=== PATIENT | male | born 1950 | race Asian ===

== ENCOUNTER → 2019-03-16 11:30 | Inpatient (IN) | payer MEDICARE ==
--- NOTE | 2019-03-01 13:48 | HP ---
HISTORY AND PHYSICAL: DATE OF ADMISSION/SURGERY: 03/14/19 DATE OF OFFICE VISIT: 03/01/19 SURGEON: Roxana Go MD* (dictated by GILDARDO Mary). PROCEDURE: Right total knee arthroplasty. CHIEF COMPLAINT: Right knee pain. HISTORY OF PRESENT ILLNESS: Mr. Bhatia is a 68-year-old gentleman with severe end- stage osteoarthritis of the right knee. He has failed conservative treatment and elected to proceed with a right total knee arthroplasty. PAST MEDICAL HISTORY: Prostate cancer, high cholesterol, and hypertension. PAST SURGICAL HISTORY: Denies. CURRENT MEDICATIONS: 1. Losartan potassium 100 mg daily. 2. Fish oil 1000 mg a day. 3. Pravastatin sodium 40 mg a day. 4. Citracal and vitamin D. 5. Alfuzosin 10 mg a day. 6. Amlodipine 5 mg a day. 7. Erythromycin 5 mg/g apply twice a day to his eyes. 8. Osteo Bi-Flex. ALLERGIES: No known drug allergies. FAMILY HISTORY: Coronary artery disease and cancer. SOCIAL HISTORY: He is a 68-year-old gentleman who lives with his . He does not smoke or use drugs. REVIEW OF SYSTEMS: A complete 14-point review of systems was reviewed with the patient. It is all negative or noncontributory. He denies history of DVT, PE, hepatitis, HIV or anesthesia problems. PHYSICAL EXAMINATION GENERAL: He is well developed, well nourished, in no acute distress. VITAL SIGNS: He stands 5 feet 7 inches tall, weighs 159 pounds. His blood pressure is 140/74, his heart rate is 76. HEENT: Normocephalic, atraumatic. NECK: Supple. No palpable lymph nodes. PULMONARY: The lungs are clear to auscultation bilaterally. CARDIO: Regular rate and rhythm. Strong S1 and S2. ABDOMEN: Soft, nontender, nondistended. NEUROLOGICAL: He is alert and oriented x3. MUSCULOSKELETAL: Right lower extremity: The skin is intact. There are no open wounds or abrasions. There is a significant varus deformity of the right knee and moderate effusion of the right knee. Range of motion is 15 to 90 degrees of flexion. He is able to dorsiflex and plantarflex. He has a 2+ dorsalis pedis pulse. ASSESSMENT AND PLAN: Mr. Bhatia is a 68-year-old gentleman with severe end- stage osteoarthritis of the right knee. He has failed conservative treatment and elected to proceed with a right total knee arthroplasty. The surgery is scheduled for 03/14/[address] Go discussed the risks and benefits of the surgery at today's visit and all of his questions were answered. He will follow up with Dr. Go 2 weeks after the surgery. GILDARDO MARY [id number]/[facility] #: [id number] MTDD
--- OUTSIDE RECORDS SUMMARY | 2019-03-14 09:51 | XMS REPORT | Continuity of Care Document ---
:1950 External Reference #:[id number] Author Name Radha Ocasio Care Team Providers Name Role Phone Ken Arenas MD Primary Care Physician Unavailable Payers Date Identification Numbers Payment Provider Subscriber Policy Number: [id number] Medicare Blue Ppo Moustapha Rossi [employer] Number: [id number] [address] [address] PayID: [id number] [place] [address] Expires: 2014 Policy Number: [id number] [facility] [employer]oust[employer]ha [employer] Number: [id number] [address] [place] [address] Expires: 2014 Medicare D - Drug Plan Moustapha Enid Emmett Problems Active Problems Provider Date Essential hypertension Guicho Figueredo M.D. Onset: 08/12/2015 Pure hypercholesterolemia Guicho Figueredo M.D. Onset: 03/28/2012 Benign localized hyperplasia of prostate Guicho Figueredo M.D. Onset: 2011 Localized, primary osteoarthritis Roxana Go M.D. Onset: 04/05/2017 Acquired genu varum Roxana Go M.D. Onset: 05/13/2018 Family History Date Family Member(s) Observation Comments General Heart Disease General Hypertension Social History Type Date Description Comments Sex Unknown Marital Status Lives With Spouse Occupation Assembler [employer] ETOH Use Occasionally consumes alcohol Tobacco Use Start: Unknown Patient has never smoked Recreational Drug Use Denies Drug Use Smoking Status Reviewed: 03/01/19 Patient has never smoked Exercise Type/Frequency Exercises regularly Allergies, Adverse Reactions, Alerts Description No Known Drug Allergies Medications Active Medications SIG Qnty Indications Ordering Provider Date Losartan Potassium Take One Tablet 90tabs I10 Guicho Figueredo, 08/31/2011 By Mouth Once M.D. 100mg Tablets Daily Fish Oil 1 po qd Guicho Figueredo, 01/21/2009 1000mg M.D. Capsules Pravastatin Sodium take one tablet 90tabs Guicho Figueredo, 01/21/2009 40mg by mouth every M.D. Tablets day Citracal +D3 Unknown [phone]-mg-Unit Chewtabs Alfuzosin HCL ER 1 by mouth every Unknown 10mg day Tablets ER 24HR Amlodipine Besylate 1 by mouth every Unknown 5mg day Tablets Erythromycin apply one half Unknown 5mg/GM inch ribbon into Ointment affected eye two times a day for 5 days Osteo Bi-Flex Regular 2 by mouth every Unknown Strength day 250-200mg Tablets History Medications Suprep Bowel Prep Kit take according to 354ml Natali Mccallum, 12/12/2018 - the instructions DIRECTOR OPERATING ROOM 01/31/2019 17.5-3.13-1.6GM/177ML you received the Solution afternoon before and morning of your procedure Oxycodone-Acetaminophen 1-2 tabs by mouth 60tabs M25.5 Roxana Go, 03/23 - 5-325mg every 12 hours as 61 M.D. 05/12/2018 Tablets needed for pain Cephalexin 1 by mouth four 20tabs M25.4 Roxana Go, 03/23/2018 - 500mg Tablets times a day 61 M.D. 05/12/2018 Meloxicam take one tablet 30tabs M25.5 Guicho Llanos 03/31/2017 - 7.5mg Tablets by mouth once 61 Khushboo Figueredo Unknown daily Amlodipine Besylate Take One Tablet 90tabs Eliza 11/05/2011 - 10mg Tablets By Mouth Once Khushboo Heaton Unknown Daily In The Evening Lisinopril 1 po qd 90tabs 401.1 Guicho Llanos 07/17/2011 - 20mg Tablets Khushboo Figueredo 08/31/2011 Medrol medrol dosepack 21tabs Guicho Llanos 09/10/2010 - 4mg Tablets as directed Khushboo Figueredo 07/17/2011 Uroxatral qd Guicho Llanos 08/29/2010 - 10mg Tablets ER 24HR Khushboo Figueredo 07/17/2011 Prednisone (Marcelo) take as directed Other 11/13/2009 - 10mg Tablets Physician 01/01/2010 Practices Protonix 1 po qd 60tabs Other 11/13/2009 - 40mg Tablets DR Cohn 07/14/2010 Practices Allopurinol 1 po qd 90tabs Guicho Llanos 11/13/2009 - 100mg Tablets Khushboo Figueredo 07/17/2011 Aspir-81 1 po qd 30tabs Guicho Llanos 01/21/2009 - 81mg Tablets DR Bea M.D. 03/28/2012 None Guicho Llanos 07/11/2007 - Khushboo Figueredo 01/01/2010 Indomethacin 1 po tid prn gout 60caps Guicho Llanos - 50mg Capsules Khushboo Figueredo 07/17/2011 Calcium 1 po qd Unknown - 1000mg Tablets 03/31/2017 Cold & Flu Intense Strength 2 pills bid prn Unknown - 07/23/2014 Tablets Nyquil D Cold/Flu 2 tbsp. hs Unknown - 01/15/2014 60-12.5-30-1000mg/30ML Liquid Trazodone HCL 1 by mouth every Unknown - 50mg Tablets day 01/31/2019 Medications Administered in Office Medication SIG Qnty Indications Ordering Provider Date Depomedrol 40MG Roxana Go M.D. 09/21/2018 Injection Depomedrol 40MG Roxana Go M.D. 07/16/2017 Injection Depomedrol 40MG Roxana Go M.D. 04/05/2017 Injection Immunizations CPT Code Status Date Vaccine Lot # [id number] Given 03/15/2017 Hepatitis A Vaccine Adult Dosage [id number] 39781 Given 08/31/2016 Hepatitis A Vaccine Adult Dosage [id number] 54943 Given 07/24/2016 Influ Virus Vaccine, Quadrivalent, Split Virus, [id number] [address] Given 08/05/2015 Influenza Virus Vaccine, Quadrivalent, Split, [id number] Preservative Free 74285 Given 01/21/2015 Pneumococcal Conjugate Vaccine 13 Valent For [id number] Intramuscular Use 72513 Given 2014 Flu Vaccine Split Virus Preservative Free For [id number] Indiv 3Yr Older 95497 Given 07/23/2014 Zoster (Zostavax) [id number] 39292 Given 08/10/2013 Flu Vaccine Split Virus Preservative Free For [id number] Indiv 3Yr Older Q2037 Given 07/16/2012 Fluvirin Im 3Yrs And Older Q2037 Given 07/16/2012 Fluvirin Im 3Yrs And Older 78165 Given 07/17/2011 Influenza Virus 3Yrs & Over [id number] 72106 Given 07/14/2010 Influenza Virus 3Yrs & Over 39127 Given 07/14/2010 Influenza Virus 3Yrs & Over [id number] 89358 Given 08/01/2009 Influenza Virus 3Yrs & Over 21659 Given 07/16/2008 Influenza Virus 3Yrs & Over 33110 Given 07/16/2008 Influenza Virus 3Yrs & Over 85454 Given 05/08/2008 Tetanus And Diptheria (Td) For Adult Use Preservative Free 99983 Given 05/08/2008 Tetanus And Diptheria (Td) For Adult Use [id number] Preservative Free 68868 Given 07/11/2007 Pneumovax (History By Patient) 25536 18471 Given 07/11/2007 Influenza Virus 3Yrs & Over 51271 Given 07/11/2007 Influenza Virus 3Yrs & Over 94100 Given 09/18/1998 Td (History By Patient) Vital Signs Date Vital Result Comment 03/01/2019 8:33am Height 67 inches 5'7" Weight 159.00 lb Heart Rate 76 /min BP Systolic 140 mmHg BP Diastolic 74 mmHg BMI (Body Mass Index) 24.9 kg/m2 02/01/2019 3:34pm Height 67 inches 5'7" Weight 156.00 lb w/o shoes Heart Rate 78 /min reg BP Systolic 128 mmHg Rue reg cuff BP Diastolic 70 mmHg Rue reg cuff BP Systolic Sitting 126 mmHg Lue reg cuff BP Diastolic Sitting 70 mmHg Lue reg cuff BP Systolic Standing 120 mmHg Rue reg cuff BP Diastolic Standing 74 mmHg Rue reg cuff Respiratory Rate 16 /min BMI (Body Mass Index) 24.4 kg/m2 12/13/2018 9:59am Height 67 inches 5'7" Weight 152.00 lb Heart Rate 76 /min BP Systolic 134 mmHg BP Diastolic 72 mmHg Respiratory Rate 18 /min Body Temperature 97.0 F BMI (Body Mass Index) 23.8 kg/m2 09/21/2018 11:30am Height 67 inches 5'7" Weight 150.00 lb BP Systolic 130 mmHg BP Diastolic 82 mmHg Body Temperature 97.8 F BMI (Body Mass Index) 23.5 kg/m2 05/13/2018 2:46pm Height 68 inches 5'8" Weight 150.00 lb BP Systolic 104 mmHg BP Diastolic 62 mmHg Respiratory Rate 16 /min Pain Level 0 BMI (Body Mass Index) 22.8 kg/m2 03/23/2018 9:11am Height 68 inches 5'8" Weight 153.00 lb BP Systolic 110 mmHg BP Diastolic 60 mmHg Body Temperature 97.6 F BMI (Body Mass Index) 23.3 kg/m2 10/15/2017 11:30am Height 68 inches 5'8" Weight 145.00 lb BP Systolic 122 mmHg BP Diastolic 70 mmHg Respiratory Rate 16 /min Body Temperature 96.4 F Pain Level 9 BMI (Body Mass Index) 22.0 kg/m2 09/22/2017 11:09am Height 68 inches 5'8" Weight 144.00 lb BP Systolic 128 mmHg BP Diastolic 82 mmHg Body Temperature 98.2 F BMI (Body Mass Index) 21.9 kg/m2 07/16/2017 8:33am Height 68 inches 5'8" Weight 145.00 lb BP Systolic 122 mmHg BP Diastolic 68 mmHg Respiratory Rate 18 /min Pain Level 4 BMI (Body Mass Index) 22.0 kg/m2 07/12/2017 3:03pm Weight 150.75 lb Heart Rate 74 /min BP Systolic 116 mmHg BP Diastolic 60 mmHg Body Temperature 98.1 F O2 % BldC Oximetry 96 % 04/05/2017 10:40am Height 68 inches 5'8" Weight 145.00 lb Heart Rate 59 /min BP Systolic 125 mmHg BP Diastolic 77 mmHg Body Temperature 97.8 F BMI (Body Mass Index) 22.0 kg/m2 03/31/2017 3:46pm Weight 156.25 lb Heart Rate 73 /min BP Systolic 118 mmHg BP Diastolic 72 mmHg Body Temperature 97.5 F O2 % BldC Oximetry 97 % 01/21/2017 9:22am Weight 151.00 lb Heart Rate 60 /min BP Systolic Sitting 124 mmHg BP Diastolic Sitting 80 mmHg Respiratory Rate 15 /min Body Temperature 98.2 F O2 % BldC Oximetry 98 % 08/31/2016 9:03am Height 65.5 inches 5'5.50" Weight 151.00 lb Heart Rate 70 /min BP Systolic 118 mmHg BP Diastolic 60 mmHg Body Temperature 97.5 F O2 % BldC Oximetry 98 % BMI (Body Mass Index) 24.7 kg/m2 03/02/2016 9:08am Height 65.5 inches 5'5.50" Weight 150.00 lb Heart Rate 65 /min BP Systolic Sitting 116 mmHg BP Diastolic Sitting 72 mmHg Body Temperature 97.3 F O2 % BldC Oximetry 98 % BMI (Body Mass Index) 24.6 kg/m2 08/12/2015 11:26am Height 65.5 inches 5'5.50" Weight 146.00 lb Heart Rate 64 /min BP Systolic Sitting 117 mmHg BP Diastolic Sitting 67 mmHg Body Temperature 97.6 F BMI (Body Mass Index) 23.9 kg/m2 01/21/2015 10:00am Weight 153.00 lb Heart Rate 68 /min BP Systolic Sitting 128 mmHg BP Diastolic Sitting 80 mmHg Body Temperature 98.6 F O2 % BldC Oximetry 97 % 2014 9:04am Weight 148.25 lb Heart Rate 63 /min BP Systolic Sitting 132 mmHg BP Diastolic Sitting 81 mmHg Body Temperature 97.3 F O2 % BldC Oximetry 97 % 07/23/2014 9:08am Height 66 inches 5'6" Weight 146.25 lb Heart Rate 64 /min BP Systolic Sitting 112 mmHg BP Diastolic Sitting 62 mmHg Body Temperature 96.7 F BMI (Body Mass Index) 23.6 kg/m2 01/15/2014 9:45am Height 66.5 inches 5'6.50" Weight 148.75 lb Heart Rate 72 /min BP Systolic Sitting 120 mmHg BP Diastolic Sitting 68 mmHg Body Temperature 96.7 F BMI (Body Mass Index) 23.6 kg/m2 05/19/2013 8:57am Height 66.5 inches 5'6.50" Weight 147.75 lb Heart Rate 74 /min BP Systolic Sitting 116 mmHg BP Diastolic Sitting 68 mmHg Body Temperature 99.5 F O2 % BldC Oximetry 93 % BMI (Body Mass Index) 23.5 kg/m2 09/05/2012 11:44am Height 66.25 inches 5'6.25" Weight 149.00 lb Heart Rate 64 /min BP Systolic Sitting 104 mmHg BP Diastolic Sitting 58 mmHg BMI (Body Mass Index) 23.9 kg/m2 03/28/2012 8:57am Height 66.5 inches 5'6.50" Weight 149.00 lb Heart Rate 68 /min BP Systolic Sitting 115 mmHg BP Diastolic Sitting 72 mmHg BMI (Body Mass Index) 23.7 kg/m2 09/28/2011 10:59am Height 66.25 inches 5'6.25" Weight 147.75 lb Heart Rate 68 /min BP Systolic Sitting 110 mmHg BP Diastolic Sitting 72 mmHg BMI (Body Mass Index) 23.7 kg/m2 08/31/2011 10:06am Height 66.25 inches 5'6.25" Weight 149.00 lb Heart Rate 72 /min BP Systolic Sitting 148 mmHg BP Diastolic Sitting 84 mmHg BMI (Body Mass Index) 23.9 kg/m2 07/17/2011 12:19pm Weight 152.00 lb Heart Rate 62 /min BP Systolic Sitting 160 mmHg BP Diastolic Sitting 88 mmHg 03/30/2011 9:05am BP Systolic Sitting 150 mmHg BP Diastolic Sitting 88 mmHg 08/29/2010 11:29am Weight 156.00 lb Heart Rate 75 /min BP Systolic Sitting 152 mmHg BP Diastolic Sitting 84 mmHg 07/14/2010 3:49pm Weight 160.00 lb Heart Rate 84 /min BP Systolic Sitting 146 mmHg BP Diastolic Sitting 82 mmHg O2 % BldC Oximetry 96 % 01/01/2010 10:55am Weight 151.00 lb Heart Rate 88 /min BP Systolic 130 mmHg BP Diastolic 80 mmHg 11/13/2009 10:34am Weight 154.00 lb Heart Rate 60 /min BP Systolic Sitting 140 mmHg BP Diastolic Sitting 92 mmHg 03/25/2009 10:39am Height 66 inches 5'6" Weight 153.00 lb Heart Rate 60 /min BP Systolic Sitting 130 mmHg BP Diastolic Sitting 90 mmHg BMI (Body Mass Index) 24.7 kg/m2 01/21/2009 11:31am Height 66 inches 5'6" Weight 150.00 lb Heart Rate 64 /min BP Systolic Sitting 140 mmHg BP Diastolic Sitting 86 mmHg BMI (Body Mass Index) 24.2 kg/m2 09/13/2008 10:42am Height 66 inches 5'6" Weight 152.00 lb Heart Rate 68 /min BP Systolic Sitting 150 mmHg BP Diastolic Sitting 86 mmHg BMI (Body Mass Index) 24.5 kg/m2 05/08/2008 10:26am Height 66 inches 5'6" Weight 151.00 lb Heart Rate 72 /min BP Systolic Sitting 124 mmHg BP Diastolic Sitting 84 mmHg BMI (Body Mass Index) 24.4 kg/m2 11/08/2007 10:46am Height 66 inches 5'6" Weight 150.00 lb Heart Rate 72 /min BP Systolic Sitting 146 mmHg BP Diastolic Sitting 92 mmHg BMI (Body Mass Index) 24.2 kg/m2 07/11/2007 10:33am Height 66 inches 5'6" Weight 152.00 lb Heart Rate 68 /min BP Systolic Sitting 140 mmHg BP Diastolic Sitting 86 mmHg BMI (Body Mass Index) 24.5 kg/m2 Results Test Date Facility Test Result H/L Range Note Laboratory test [facility] Surgical Pathology SEE RESULT 1, 2 finding [address] [place] [address] [phone] Laboratory test [facility] PSA Screening < 0.008 N 0 -4.000 3 finding [address] ng/mL [place], [place] [id number] [phone] Laboratory test [facility] PSA Diagnostic 0.031 ng/mL N 0-4.000 4 finding [address] [place], [place] [address] [phone] Laboratory test [facility] PSA Diagnostic 3.238 ng/mL 0-4.0 5 finding [address] [place] [address] [phone] Laboratory test [facility] Surgical Pathology SEE RESULT 6, 7 finding [address] [place] [address] [phone] Laboratory test [facility] PSA Screening 9.031 ng/mL High 0-4.0 8 finding [address] [place] [address] [phone] Laboratory test [facility] PSA Screening 7.924 ng/mL High 0-4.0 [address] [place] [address] [phone] Lipid Profile [facility] Triglycerides 93 mg/dL N 10 (Trig/Chol/HDL) [address] [place] [address] [phone] Cholesterol 151 mg/dL N 11 HDL Cholesterol 49.4 mg/dL N 12 LDL Cholesterol 83 mg/dL N 13 Comp Metabolic Panel 03/29/2017 [facility] Sodium 135 mmol/L N 133-[address] [place] [address] [phone] Potassium 3.9 mmol/L N 3.5-5.0 Chloride 105 mmol/L N 101-111 Co2 Carbon Dioxide 25 mmol/L N 22-32 Anion Gap 5 mmol/L N 2-11 Glucose 105 mg/dL High 70-100 Blood Urea Nitrogen 16 mg/dL N 6-24 Creatinine 0.76 mg/dL N 0.67-1.17 BUN/Creatinine Ratio 21.1 High 8-20 Calcium 9.3 mg/dL N 8.6-10.3 Total Protein 7.3 g/dL N 6.4-8.9 Albumin 4.2 g/dL N 3.2-5.2 Globulin 3.1 g/dL N 2-4 Albumin/Globulin Ratio 1.4 N 1-3 Total Bilirubin 0.40 mg/dL N 0.2-1.0 Alkaline Phosphatase 21 U/L Low 34-104 Alt 22 U/L N 7-52 Ast 18 U/L N 13-39 Egfr Non- 102.3 N >60 Egfr 131.6 N >60 14 Laboratory test 06/16/2016 [facility] PSA Diagnostic 7.780 High 0-4.0 [address] ng/[place] [address] [phone] Comp Metabolic 01/15/2016 [facility] Sodium 137 N 133-[address] mmol/[place] [address] [phone] Potassium 4.1 mmol/L N 3.5-5.0 Chloride 104 mmol/L N 101-111 Co2 Carbon Dioxide 27 mmol/L N 22-32 Anion Gap 6 mmol/L N 2-11 Glucose 95 mg/dL N 70-100 Blood Urea Nitrogen 11 mg/dL N 6-24 Creatinine 0.77 mg/dL N 0.67-1.17 BUN/Creatinine Ratio 14.3 N 8-20 Calcium 9.4 mg/dL N 8.6-10.3 Total Protein 7.0 g/dL N 6.4-8.9 Albumin 4.3 g/dL N 3.2-5.2 Globulin 2.7 g/dL N 2-4 Albumin/Globulin Ratio 1.6 N 1-3 Total Bilirubin 0.50 mg/dL N 0.2-1.0 Alkaline Phosphatase 20 U/L Low 34-104 Alt 19 U/L N 7-52 Ast 18 U/L N 13-39 Egfr Non- 101.1 N >60 Egfr 130.0 N >60 16 Lipid Profile 01/15/2016 [facility] Triglycerides 130 mg/dL N 17 (Trig/Chol/HDL) [address] [place] [address] [phone] Cholesterol 155 mg/dL N 18 HDL Cholesterol 51.8 mg/dL N 19 LDL Cholesterol 77 mg/dL N 20 Laboratory test 06/03/2015 [facility] PSA Diagnostic 7.904 High 0-4.0 [address] ng/[place] [address] [phone] Laboratory test 01/14/2015 [facility] PSA Diagnostic 7.382 High 0-4.0 [address] ng/mL [place], [place] [id number] [phone] Surgical 10/30/2014 [facility] S RUN DATE: [address] 10/31/ [place] [address] <SEE [phone] NOTE> Laboratory test 08/28/2014 [facility] PSA Screening 8.766 High 0-4.0 [address] ng/[place] [address] [phone] Comp Metabolic 07/16/2014 [facility] Sodium 136 N 133-145 [address] mmol/[place] [address] [phone] Potassium 4.1 mmol/L N 3.7-5.6 Chloride 104 mmol/L N 101-111 Co2 Carbon Dioxide 28 mmol/L N 22-32 Anion Gap 4 mmol/L N 2-11 Blood Urea Nitrogen 13 mg/dL N 6-24 Creatinine 0.78 mg/dL N 0.67-1.17 BUN/Creatinine Ratio 16.7 N 8-20 Calcium 9.3 mg/dL N 8.6-10.3 Total Protein 7.2 g/dL N 6.4-8.9 Albumin 4.4 g/dL N 3.2-5.2 Globulin 2.8 g/dL N 2-4 Albumin/Globulin Ratio 1.6 N 1-3 Total Bilirubin 0.60 mg/dL N 0.2-1.0 Alkaline Phosphatase 23 U/L Low 34-104 Alt 19 U/L N 7-52 Ast 18 U/L N 13-39 Egfr Non- 100.2 N >60 Egfr 128.9 N >60 26 Lipid Profile 07/16/2014 [facility] Triglycerides 112 mg/dL N 27 (Trig/Chol/HDL) [address] [place] [address] [phone] Cholesterol 151 mg/dL N 28 HDL Cholesterol 51.1 mg/dL N 29 LDL Cholesterol 78 mg/dL N 30 Laboratory test 07/16/2014 [facility] Glucose 88 mg/dL N 70- [address] [place] [address] [phone] Surgical 04/09/2014 [facility] S RUN DATE: [address] 04/11/ [place] [address] <SEE [phone] NOTE> Laboratory test 08/10/2013 [facility] PSA Diagnostic 6.97 High 0-4.0 [address] ng/[place] [address] [phone] BMP Basic 05/12/2013 [facility] Sodium 137 133-145 Metabolic Panel [address] mmol/[place] [address] [phone] Potassium 3.8 mmol/L 3.5-5.0 Chloride 104 mmol/L 101-111 Co2 Carbon Dioxide 27.0 mmol/L 22-32 Anion Gap 6.0 mmol/L 2-11 Glucose 90 mg/dL 70-100 Blood Urea Nitrogen 13 mg/dL 6-24 Creatinine 0.80 mg/dL 0.50-1.40 BUN/Creatinine Ratio 16.3 8-20 Calcium 9.4 mg/dL 8.1-9.9 Egfr Non- 97.6 >60 Egfr 125.6 >60 33 Lipid Panel 05/12/2013 [facility] Triglycerides 67 mg/dL 40- [address] [place] [address] [phone] Cholesterol 139 mg/dL Less than 200 HDL Cholesterol 51 mg/dL 40-60 34 Cholesterol/HDL Ratio 2.7 Average 1-4.44 LDL Cholesterol 74.6 Less Than 100 35 Laboratory test 05/12/2013 [facility] PSA Diagnostic 7.8 ng/mL High 0-4.0 36 finding [address] [place] [address] [phone] Basic Metabolic 08/29/2012 [facility] Sodium 141 133-145 Panel 101 mmol/[place] [address] [phone] Potassium 4.1 mmol/L 3.5-5.0 Chloride 107 mmol/L 101-111 Co2 Carbon Dioxide 27.0 mmol/L 22-32 Anion Gap 7.0 mmol/L 2-11 Glucose 91 mg/dL 70-100 Blood Urea Nitrogen 11 mg/dL 6-24 Creatinine 0.70 mg/dL 0.50-1.40 BUN/Creatinine Ratio 15.7 8-20 Calcium 9.5 mg/dL 8.1-9.9 Egfr Non- 113.9 >60 Egfr 146.5 >60 37 Lipid Profile 08/29/2012 [facility] Triglycerides 100 mg/dL 40-200 (Trig/Chol/HDL) [address] [place] [address] [phone] Cholesterol 159 mg/dL Less than 200 HDL Cholesterol 50 mg/dL 40-60 38 Cholesterol/HDL Ratio 3.2 AVERAGE 1-4.44 LDL Cholesterol 89.0 mg/dL Less Than 100 39 Laboratory test 03/21/2012 [facility] PSA,Diagnostic 5.17 NG/ML High 0-4 40 finding [address] [place] [address] [phone] DR Fig[facility]red[facility] 03/21/2012 [facility] TSH 1.16 0.34-5. Panel [address] MIU/ML 60 [place] [address] [phone] Comp Metabolic 03/21/2012 [facility] Sodium 134 mmol/L Low 135 -[address] [place] [address] [phone] Potassium 3.7 mmol/L 3.5-5.0 Chloride 104 mmol/L 101-111 Co2 (Carbon Dioxide) 26.0 mmol/L 22-32 Anion Gap 4.0 mmol/L 2-11 41 Glucose 90 mg/dL 70-100 BUN 12 mg/dL 6-24 Creatinine 0.8 mg/dL 0.50-1.40 One Over Creatinine 1.25 BUN/Creatinine Ratio 15.0 8-20 Calcium 9.2 mg/dL 8.1-9.9 Total Protein 7.3 GM/DL 6.2-8.1 Albumin 4.2 GM/DL 3.2-5.2 Globulin 3.1 GM/DL 2-4 Albumin/Globulin Ratio 1.4 1-3 Bilirubin Total 0.9 mg/dL 0.4-1.5 42 Alkaline Phosphatase 20 U/L Low 39-117 Alt (SGPT) 24 U/L 17-63 Ast (Sgot) 24 U/L 12-42 eGFR Non- 98.0 > 60 eGFR 126.0 > 60 43 CBC Auto Diff 03/21/2012 [facility] White Blood 4.1 CUMM Low 4.8-10.[address] [place] [address] [phone] Red Cell Count 4.14 CUMM Low 4.6-6.2 Hemoglobin 13.1 g/dL Low 14.0-18.0 Hematocrit 38 % Low 42-52 Mean Corpuscular Volume 93 um3 80-94 Mean Corpuscular Hemoglob 32 pg High 27-31 Mean Corpuscular HGB Cone 34 g/dL 32-36 Redcell Distribution WDTH 13 % 10.5-15 Platelet Count 251 CUMM 150-450 Mean Platelet Volume 8.9 um3 7.4-10.4 Gran % 51.4 % 38-83 Lymph % 36.3 % 25-47 Mononuclear % 9.7 % High 1-9 Eosinophil % 2.3 % 0-6 Basophil % 0.3 % 0-2 Abs Lymphs 1.5 1.0-4.8 Abs Mononuclear 0.4 0-0.8 Absolute Neutrophil Count 2.1 1.5-7.7 Abs Eosinophils 0.1 0-0.6 Abs Basophils 0 0-0.2 Lipid Profile 03/21/2012 [facility] Triglyceride 108 mg/dL 40 -200 (Trig/Chol/HDL) [address] [place] [address] [phone] Cholesterol 164 mg/dL Less Than 200 44 High Density Lipoprotein 50 mg/dL 40-60 45 Cholesterol/HDL Ratio 3.28 AVERAGE 1-4.97 Low Density Lipoprotein 92 mg/dL Less Than 100 46 Basic Metabolic Panel 09/21/2011 [facility] Sodium 138 mmol/L 135-145 [address] [place] [address] [phone] Potassium 4.0 mmol/L 3.5-5.0 Chloride 107 mmol/L 101-111 Co2 (Carbon Dioxide) 25.0 mmol/L 22-32 Anion Gap 6.0 mmol/L 2-11 47 Glucose 97 mg/dL 70-100 BUN 11 mg/dL 6-24 Creatinine 0.9 mg/dL 0.50-1.40 One Over Creatinine 1.11 BUN/Creatinine Ratio 12.2 8-20 Calcium 9.7 mg/dL 8.1-9.9 eGFR Non- 85.5 > 60 eGFR 110.0 > 60 48 Laboratory test 08/24/2011 [facility] Uric Acid 9.8 mg/dL High 2.6-7.2 finding [address] [place] [address] [phone] Erythrocyte Sed Rate 20 MM/HR 0-20 C Reactive Protein < 0.5 mg/dL Less Than 0.5 Basic Metabolic Panel 08/24/2011 [facility] Sodium 140 mmol/L 135-145 [address] [place] [address] [phone] Potassium 4.3 mmol/L 3.5-5.0 Chloride 107 mmol/L 101-111 Co2 (Carbon Dioxide) 26.0 mmol/L 22-32 Anion Gap 7.0 mmol/L 2-11 49 Glucose 90 mg/dL 70-100 BUN 13 mg/dL 6-24 Creatinine 0.8 mg/dL 0.50-1.40 One Over Creatinine 1.25 BUN/Creatinine Ratio 16.3 8-20 Calcium 9.6 mg/dL 8.1-9.9 eGFR Non- 98.0 > 60 eGFR 126.0 > 60 50 Comp Metabolic Panel 03/30/2011 [facility] Sodium 139 mmol/L 135-145 [address] [place] [address] [phone] Potassium 3.8 mmol/L 3.5-5.0 Chloride 107 mmol/L 101-111 Co2 (Carbon Dioxide) 25.0 mmol/L 22-32 Anion Gap 7.0 mmol/L 2-11 51 Glucose 93 mg/dL 70-100 BUN 10 mg/dL 6-24 Creatinine 0.80 mg/dL 0.50-1.40 One Over Creatinine 1.20 BUN/Creatinine Ratio 12.5 8-20 Calcium 9.2 mg/dL 8.1-9.9 Total Protein 6.9 GM/DL 6.2-8.1 Albumin 3.8 GM/DL 3.2-5.2 Globulin 3.1 GM/DL 2-4 Albumin/Globulin Ratio 1.2 1-3 Bilirubin Total 0.6 mg/dL 0.4-1.5 52 Alkaline Phosphatase 29 U/L Low 39-117 Alt (SGPT) 22 U/L 17-63 Ast (Sgot) 21 U/L 12-42 eGFR Non- 98.3 > 60 eGFR 126.4 > 60 53 Lipid Profile 03/30/2011 [facility] Triglyceride 92 mg/dL 40- 200 (Trig/Chol/HDL) [address] [place] [address] [phone] Cholesterol 166 mg/dL Less Than 200 54 High Density Lipoprotein 45 mg/dL 40-60 55 Cholesterol/HDL Ratio 3.69 AVERAGE 1-4.97 Low Density Lipoprotein 103 mg/dL High Less Than 100 56 Laboratory test 03/30/2011 [facility] PSA,Diagnostic 5.96 NG/ML High 0-4 57 finding [address] [place] [address] [phone] Lipid Profile 12/02/2010 [facility] Triglyceride 214 mg/dL High 40-200 (Trig/Chol/HDL) [address] [place] [address] [phone] Cholesterol 190 mg/dL Less Than 200 58 High Density Lipoprotein 51 mg/dL 40-60 59 Cholesterol/HDL Ratio 3.73 AVERAGE 1-4.97 Low Density Lipoprotein 96 mg/dL Less Than 100 60 Comp Metabolic Panel 12/02/2010 [facility] Sodium 138 mmol/L 135-[address] [place] [address] [phone] Potassium 3.9 mmol/L 3.5-5.0 Chloride 106 mmol/L 101-111 Co2 (Carbon Dioxide) 27.0 mmol/L 22-32 Anion Gap 5.0 mmol/L 2-11 61 Glucose 93 mg/dL 70-100 BUN 10 mg/dL 6-24 Creatinine 0.80 mg/dL 0.50-1.40 One Over Creatinine 1.20 BUN/Creatinine Ratio 12.5 8-20 Calcium 9.1 mg/dL 8.1-9.9 Total Protein 6.8 GM/DL 6.2-8.1 Albumin 3.8 GM/DL 3.2-5.2 Globulin 3.0 GM/DL 2-4 Albumin/Globulin Ratio 1.3 1-3 Bilirubin Total 0.6 mg/dL 0.4-1.5 62 Alkaline Phosphatase 28 U/L Low 39-117 Alt (SGPT) 22 U/L 17-63 Ast (Sgot) 19 U/L 12-42 eGFR Non- 98.3 > 60 eGFR 126.4 > 60 63 Laboratory test 12/02/2010 [facility] Uric Acid 8.5 mg/dL High 2.6-7.[address] [place] [address] [phone] Laboratory test 12/02/2010 [facility] PSA,Diagnos 6.24 NG/ML High 0-[address] [place] [address] [phone] CBC With 09/23/2010 [facility] White Blood 5.0 CUMM 4.8-10.8 Electronic Diff [address] [place] [address] [phone] Red Cell Count 4.53 CUMM Low 4.6-6.2 Hemoglobin 14.4 g/dL 14.0-18.0 Hematocrit 43 % 42-52 Mean Corpuscular Volume 95 um3 High 80-94 Mean Corpuscular Hemoglob 32 pg High 27-31 Mean Corpuscular HGB Cone 34 g/dL 32-36 Redcell Distribution WDTH 14 % 10.5-15 Platelet Count 259 CUMM 150-450 Mean Platelet Volume 7.9 um3 7.4-10.4 Gran % 42.3 % 38-83 Lymph % 42.7 % 25-47 Mononuclear % 11.4 % High 1-9 Eosinophil % 2.8 % 0-6 Basophil % 0.8 % 0-2 Abs Lymphs 2.1 1.0-4.8 Abs Mononuclear 0.6 0-0.8 Absolute Neutrophil Count 2.1 1.5-7.7 Abs Eosinophils 0.1 0-0.6 Abs Basophils 0 0-0.2 Laboratory 09/23/2010 [facility] Erythrocyte 29 MM/HR High 0- 20 test finding [address] [place] [address] [phone] Hepatitis 09/23/2010 [facility] Hepatitis C Nonreactive Nonreactive Acute Panel [address] [place] [address] [phone] Hepatitis A AB Igm Nonreactive Nonreactive Hepatitis B Core Igm Nonreactive Nonreactive Hepatitis B Surface Ag Nonreactive Nonreactive Laboratory test 08/29/2010 [facility] Cyclic <15.6 U () [address] [place] [address] Igg [phone] Comp Metabolic 08/29/2010 [facility] Sodium 135 mmol/L 135- [address] [place] [address] [phone] Potassium 4.0 mmol/L 3.5-5.0 Chloride 104 mmol/L 101-111 Co2 (Carbon Dioxide) 24.0 mmol/L 22-32 Anion Gap 7.0 mmol/L 2-11 66 Glucose 106 mg/dL High 70-100 67 BUN 11 mg/dL 6-24 Creatinine 0.80 mg/dL 0.50-1.40 One Over Creatinine 1.20 BUN/Creatinine Ratio 13.8 8-20 Calcium 9.2 mg/dL 8.1-9.9 Total Protein 7.1 GM/DL 6.2-8.1 Albumin 4.0 GM/DL 3.2-5.2 Globulin 3.1 GM/DL 2-4 Albumin/Globulin Ratio 1.3 1-3 Bilirubin Total 0.6 mg/dL 0.4-1.5 68 Alkaline Phosphatase 30 U/L Low 39-117 Alt (SGPT) 28 U/L 17-63 Ast (Sgot) 25 U/L 12-42 eGFR Non- 104.5 > 60 eGFR 126.4 > 60 69 CBC With 08/29/2010 [facility] White Blood 6.8 CUMM 4.8-10.8 Electronic Diff [address] [place] [address] [phone] Red Cell Count 4.50 CUMM Low 4.6-6.2 Hemoglobin 14.4 g/dL 14.0-18.0 Hematocrit 42 % 42-52 Mean Corpuscular Volume 94 um3 80-94 Mean Corpuscular Hemoglob 32 pg High 27-31 Mean Corpuscular HGB Cone 34 g/dL 32-36 Redcell Distribution WDTH 14 % 10.5-15 Platelet Count 296 CUMM 150-450 Mean Platelet Volume 7.9 um3 7.4-10.4 Gran % 61.6 % 38-83 Lymph % 25.4 % 25-47 Mononuclear % 11.3 % High 1-9 Eosinophil % 1.1 % 0-6 Basophil % 0.6 % 0-2 Abs Lymphs 1.7 1.0-4.8 Abs Mononuclear 0.8 0-0.8 Absolute Neutrophil Count 4.2 1.5-7.7 Abs Eosinophils 0.1 0-0.6 Abs Basophils 0 0-0.2 Laboratory test 08/29/2010 [facility] Rheumatoid 20.7 IU/mL High Less finding [address] Factor Than 20 [place] [address] [phone] Erythrocyte Sed Rate 82 MM/HR High 0-20 C Reactive Protein 4.2 mg/dL High Less Than 0.5 Lyme Disease Serology Negative Negative 70 Uric Acid 8.2 mg/dL High 2.6-7.2 Jessica (Antinuclear 08/29/2010 [facility] Antinuclear AB NEGATIVE Negative Antibodies) [address] [place] [address] [phone] CBC With 06/23/2010 [facility] White Blood 6.4 CUMM 4.8-10.8 Electronic Diff [address] [place] [address] [phone] Red Cell Count 4.45 CUMM Low 4.6-6.2 Hemoglobin 14.6 g/dL 14.0-18.0 Hematocrit 42 % 42-52 Mean Corpuscular Volume 95 um3 High 80-94 Mean Corpuscular Hemoglob 33 pg High 27-31 Mean Corpuscular HGB Cone 35 g/dL 32-36 Redcell Distribution WDTH 14 % 10.5-15 Platelet Count 223 CUMM 150-450 Mean Platelet Volume 7.8 um3 7.4-10.4 Gran % 50.4 % 38-83 Lymph % 38.5 % 25-47 Mononuclear % 9.3 % High 1-9 Eosinophil % 1.0 % 0-6 Basophil % 0.8 % 0-2 Abs Lymphs 2.5 1.0-4.8 Abs Mononuclear 0.6 0-0.8 Absolute Neutrophil Count 3.3 1.5-7.7 Abs Eosinophils 0.1 0-0.6 Abs Basophils 0.1 0-0.2 Lipid Profile 06/23/2010 [facility] Triglyceride 112 mg/dL 40 -200 (Trig/Chol/HDL) [address] [place] [address] [phone] Cholesterol 216 mg/dL High Less Than 200 71 High Density Lipoprotein 79 mg/dL High 40-60 72 Cholesterol/HDL Ratio 2.73 AVERAGE 1-4.97 Low Density Lipoprotein 115 mg/dL High Less Than 100 73 Comp Metabolic Panel 06/23/2010 [facility] Sodium 137 mmol/L 135-145 [address] [place] [address] [phone] Potassium 3.7 mmol/L 3.5-5.0 Chloride 105 mmol/L 101-111 Co2 (Carbon Dioxide) 26.0 mmol/L 22-32 Anion Gap 6.0 mmol/L 2-11 74 Glucose 93 mg/dL 70-100 75 BUN 13 mg/dL 6-24 Creatinine 0.90 mg/dL 0.50-1.40 One Over Creatinine 1.10 BUN/Creatinine Ratio 14.4 8-20 Calcium 9.3 mg/dL 8.1-9.9 Total Protein 6.8 GM/DL 6.2-8.1 Albumin 4.0 GM/DL 3.2-5.2 Globulin 2.8 GM/DL 2-4 Albumin/Globulin Ratio 1.4 1-3 Bilirubin Total 0.8 mg/dL 0.4-1.5 76 Alkaline Phosphatase 18 U/L Low 39-117 Alt (SGPT) 36 U/L 17-63 Ast (Sgot) 28 U/L 12-42 eGFR Non- 91.5 > 60 eGFR 110.7 > [address] [facility] 06/23/2010 [facility] TSH 1.33 MIU/ML 0.34- 5.60 Panel [address] [place] [address] [phone] Laboratory test 06/23/2010 [facility] PSA,Diagnos 5.24 NG/ML High 0-4 78 finding [address] [place] [address] [phone] Laboratory test 03/17/2010 [facility] Uric Acid 7.9 mg/dL High 2.6-7.2 finding [address] [place] [address] [phone] DR [facility] 03/17/2010 [facility] TSH 0.62 MIU/ML 0.34- 5.60 Panel [address] [place] [address] [phone] Comp Metabolic 03/17/2010 [facility] Sodium 138 mmol/L 135- 145 Panel [address] [place] [address] [phone] Potassium 4.1 mmol/L 3.5-5.0 Chloride 102 mmol/L 101-111 Co2 (Carbon Dioxide) 29.0 mmol/L 22-32 Anion Gap 7.0 mmol/L 2-11 79 Glucose 79 mg/dL 70-100 80 BUN 14 mg/dL 6-24 Creatinine 0.90 mg/dL 0.50-1.40 One Over Creatinine 1.10 BUN/Creatinine Ratio 15.6 8-20 Calcium 9.2 mg/dL 8.1-9.9 81 Total Protein 7.1 GM/DL 6.2-8.1 Albumin 3.9 GM/DL 3.2-5.2 Globulin 3.2 GM/DL 2-4 Albumin/Globulin Ratio 1.2 1-3 Bilirubin Total 0.8 mg/dL 0.4-1.5 82 Alkaline Phosphatase 21 U/L Low 39-117 Alt (SGPT) 30 U/L 17-63 Ast (Sgot) 28 U/L 12-42 eGFR Non- 91.5 > 60 eGFR 110.7 > 60 83 Lipid Profile 03/17/2010 [facility] Triglyceride 68 mg/dL 40- 200 (Trig/Chol/HDL) [address] [place] [address] [phone] Cholesterol 200 mg/dL Less Than 200 84 High Density Lipoprotein 77 mg/dL High 40-60 85 Cholesterol/HDL Ratio 2.60 AVERAGE 1-4.97 Low Density Lipoprotein 109 mg/dL High Less Than 100 86 CBC With 03/17/2010 [facility] White Blood 6.8 CUMM 4.8-10.8 Electronic Diff [address] [place] [address] [phone] Red Cell Count 4.41 CUMM Low 4.6-6.2 Hemoglobin 13.8 g/dL Low 14.0-18.0 Hematocrit 40 % Low 42-52 Mean Corpuscular Volume 91 um3 80-94 Mean Corpuscular Hemoglob 31 pg 27-31 Mean Corpuscular HGB Cone 34 g/dL 32-36 Redcell Distribution WDTH 15 % 10.5-15 Platelet Count 247 CUMM 150-450 Mean Platelet Volume 8.7 um3 7.4-10.4 Gran % 67.8 % 38-83 Lymph % 24.2 % Low 25-47 Mononuclear % 7.4 % 1-9 Eosinophil % 0.2 % 0-6 Basophil % 0.4 % 0-2 Abs Lymphs 1.6 1.0-4.8 Abs Mononuclear 0.5 0-0.8 Absolute Neutrophil Count 4.6 1.5-7.7 Abs Eosinophils 0 0-0.6 Abs Basophils 0 0-0.2 Laboratory 03/17/2010 [facility] PSA,Diagnostic 6.59 High 0-4 87 test finding [address] NG/[place] [address] [phone] Laboratory 12/19/2009 [facility] Uric Acid 8.4 mg/dL High 2.6- 7.2 test finding [address] [place] [address] [phone] CBC With 09/16/2009 [facility] White Blood Count 4.7 CUMM Low 4.8-10. [address] 8 [place] [address] [phone] Red Cell Count 4.68 CUMM 4.6-6.2 Hemoglobin 14.6 g/dL 14.0-18.0 Hematocrit 43 % 42-52 Mean Corpuscular Volume 92 um3 80-94 Mean Corpuscular Hemoglob 31 pg 27-31 Mean Corpuscular HGB Cone 34 g/dL 32-36 Redcell Distribution WDTH 13 % 10.5-15 Platelet Count 235 CUMM 150-450 Mean Platelet Volume 8.6 um3 7.4-10.4 Gran % 55.0 % 38-83 Lymph % 32.4 % 25-47 Mononuclear % 10.7 % High 1-9 Eosinophil % 1.4 % 0-6 Basophil % 0.5 % 0-2 Abs Lymphs 1.5 1.0-4.8 Abs Mononuclear 0.5 0-0.8 Absolute Neutrophil Count 2.6 1.5-7.7 Abs Eosinophils 0.1 0-0.6 Abs Basophils 0 0-0.2 Laboratory test 09/16/2009 [facility] TSH 1.35 MIU/ML 0.34- 5.60 finding [address] [place] [address] [phone] Basic Metabolic 09/16/2009 [facility] Sodium 138 mmol/L 135- 145 Panel [address] [place] [address] [phone] Potassium 4.3 mmol/L 3.5-5.0 Chloride 106 mmol/L 101-111 Co2 (Carbon Dioxide) 27.0 mmol/L 22-32 Anion Gap 5.0 mmol/L 2-11 89 Glucose 93 mg/dL 70-100 90 BUN 13 mg/dL 6-24 Creatinine 0.70 mg/dL 0.50-1.40 One Over Creatinine 1.40 BUN/Creatinine Ratio 18.6 8-20 Calcium 9.2 mg/dL 8.1-9.9 91 eGFR Non- 122.3 > 60 eGFR 147.9 > 60 92 Laboratory test finding 06/11/2009 [facility] Alt (SGPT) 27 U/L 17-63 [address] [place] [address] [phone] Ast (Sgot) 22 U/L 12-42 PSA,Diagnostic 5.05 NG/ML High 0-4 93 Lipid Profile 06/11/2009 [facility] Triglyceride 94 mg/dL 40- 200 (Trig/Chol/HDL) [address] [place], [place] [address] [phone] Cholesterol 172 mg/dL Less Than 200 94 High Density Lipoprotein 44 mg/dL 40-60 95 Cholesterol/HDL Ratio 3.91 AVERAGE 1-4.97 Low Density Lipoprotein 109 mg/dL High Less Than 100 96 Laboratory test finding 03/18/2009 [facility] Alt (SGPT) 31 U/L 17-[address] [place] [address] [phone] Ast (Sgot) 25 U/L 12-42 Lipid Profile 03/18/2009 [facility] Triglyceride 167 mg/dL 40 -200 (Trig/Chol/HDL) [address] [place] [address] [phone] Cholesterol 172 mg/dL Less Than 200 98 High Density Lipoprotein 44 mg/dL 40-60 99 Cholesterol/HDL Ratio 3.91 AVERAGE 1-4.97 Low Density Lipoprotein 95 mg/dL Less Than 100 100 Surgical 02/04/2009 [facility] Surgical [address]ology <SEE NOTE> [place] [id number] [phone] CBC With 01/15/2009 [facility] White Blood 4.4 CUMM Low 4.[address] Count -10 [place] [id number] .8 [phone] Red Cell Count 4.76 CUMM 4.6-6.2 Hemoglobin 14.8 g/dL 14.0-18.0 Hematocrit 43 % 42-52 Mean Corpuscular Volume 90 um3 80-94 Mean Corpuscular Hemoglob 31 pg 27-31 Mean Corpuscular HGB Cone 35 g/dL 32-36 Redcell Distribution WDTH 14 % 10.5-15 Platelet Count 246 CUMM 150-450 Mean Platelet Volume 8.3 um3 7.4-10.4 Gran % 51.8 % 38-83 Lymph % 37.5 % 25-47 Mononuclear % 8.5 % 1-9 Eosinophil % 1.6 % 0-6 Basophil % 0.6 % 0-2 Abs Lymphs 1.6 1.0-4.8 Abs Mononuclear 0.4 0-0.8 Absolute Neutrophil Count 2.3 1.5-7.7 Abs Eosinophils 0.1 0-0.6 Abs Basophils 0 0-0.2 Comp Metabolic Panel 01/15/2009 [facility] Sodium 138 mmol/L 135-145 [address] [place] [address] [phone] Potassium 3.9 mmol/L 3.5-5.0 Chloride 107 mmol/L 101-111 Co2 (Carbon Dioxide) 24.0 mmol/L 22-32 Anion Gap 7.0 mmol/L 2-11 102 Glucose 86 mg/dL 70-100 103 BUN 10 mg/dL 6-24 Creatinine 0.90 mg/dL 0.50-1.40 One Over Creatinine 1.10 BUN/Creatinine Ratio 11.1 8-20 Calcium 9.4 mg/dL 8.1-9.9 104 Total Protein 6.6 GM/DL 6.2-8.1 Albumin 3.9 GM/DL 3.6-5.4 Globulin 2.7 GM/DL 2-4 Albumin/Globulin Ratio 1.4 1-3 Bilirubin Total 0.7 mg/dL 0.4-1.5 Alkaline Phosphatase 21 U/L Low 39-117 Alt (SGPT) 24 U/L 17-63 Ast (Sgot) 23 U/L 12-42 Lipid Profile 01/15/2009 [facility] Triglyceride 136 mg/dL 40 -200 (Trig/Chol/HDL) [address] [place] [address] [phone] Cholesterol 231 mg/dL High Less Than 200 105 High Density Lipoprotein 51 mg/dL 40-60 106 Cholesterol/HDL Ratio 4.53 AVERAGE 1-4.97 Low Density Lipoprotein 153 mg/dL High Less Than 100 107 Laboratory test 01/15/2009 [facility] TSH 1.27 MIU/ML 0.34- 5.60 finding [address] [place] [address] [phone] PSA,Diagnostic 6.09 NG/ML High 0-4 108 Lipid Profile 09/13/2008 [facility] Triglyceride 122 mg/dL 40 -200 109 (Trig/Chol/HDL) [address] [place] [address] [phone] Cholesterol 208 mg/dL High Less Than 200 110 High Density Lipoprotein 45 mg/dL 40-60 111 Cholesterol/HDL Ratio 4.62 AVERAGE 1-4.97 Low Density Lipoprotein 139 mg/dL High Less Than 100 112 Laboratory 09/13/2008 [facility] PSA,Diagnostic 5.01 High 0-4 113 test finding [address] NG/[place] [address] [phone] CBC With 04/30/2008 [facility] White Blood Count 5.1 CUMM 4.8 -[address] .8 [place] [address] [phone] Red Cell Count 4.63 CUMM 4.6-6.2 Hemoglobin 14.5 g/dL 14.0-18.0 Hematocrit 42 % 42-52 Mean Corpuscular Volume 90 um3 80-94 Mean Corpuscular Hemoglob 31 pg 27-31 Mean Corpuscular HGB Cone 35 g/dL 32-36 Redcell Distribution WDTH 13 % 10.5-15 Platelet Count 252 CUMM 150-450 Mean Platelet Volume 8.3 um3 7.4-10.4 Gran % 57.3 % 38-83 Lymph % 32.3 % 20-45 Mononuclear % 8.0 % 1-9 Eosinophil % 1.9 % 0-6 Basophil % 0.5 % 0-2 Abs Lymphs 1.7 1.0-4.8 Abs Mononuclear 0.4 0-0.8 Absolute Neutrophil Count 2.9 1.5-7.7 Abs Eosinophils 0.1 0-0.6 Abs Basophils 0 0-0.2 Comp Metabolic Panel 04/30/2008 [facility] Sodium 133 mmol/L Low 135-[address] [place] [address] [phone] Potassium 4.1 mmol/L 3.5-5.0 Chloride 104 mmol/L 101-111 Co2 (Carbon Dioxide) 28.0 mmol/L 22-32 Anion Gap 1.0 mmol/L Low 2-11 114 Glucose 84 mg/dL 70-105 BUN 12 mg/dL 6-24 Creatinine 1.0 mg/dL 0.5-1.4 One Over Creatinine 1.00 BUN/Creatinine Ratio 12.0 8-20 Calcium 8.9 mg/dL 8.1-9.9 115 Total Protein 7.0 GM/DL 6.2-8.1 Albumin 3.9 GM/DL 3.6-5.4 Globulin 3.1 GM/DL 2-4 Albumin/Globulin Ratio 1.3 1-3 Bilirubin Total 0.8 mg/dL 0.4-1.5 Alkaline Phosphatase 25 U/L Low 39-117 Alt (SGPT) 30 U/L 17-63 Ast (Sgot) 23 U/L 12-42 Lipid Profile 04/30/2008 [facility] Triglyceride 182 mg/dL 40 -200 (Trig/Chol/HDL) [address] [place], [place] [address] [phone] Cholesterol 218 mg/dL High Less Than 200 116 High Density Lipoprotein 43 mg/dL 40-60 117 Cholesterol/HDL Ratio 5.07 AVERAGE High 1-4.97 Low Density Lipoprotein 139 mg/dL High Less Than 100 118 Laboratory test 04/30/2008 [facility] TSH 1.04 MIU/ML 0.34- 5.[address] [place], [place] [address] [phone] PSA,Diagnostic 5.03 NG/ML High 0-4 119 Lipid Profile 12/26/2007 [facility] Cholesterol/HDL 4.95 1- 4.97 120 (Trig/Chol/HDL) [address] [place] [address] [phone] Cholesterol 218 mg/dL High Less Than 200 121 Triglyceride 120 mg/dL 40-200 High Density Lipoprotein 44 mg/dL 40-60 Low Density Lipoprotein 150 mg/dL High Less Than 100 122 Laboratory 12/26/2007 [facility] PSA Screening 5.43 NG/ML High 0-4 123 test finding [address] [place], [place] [id number] [phone] Laboratory 09/26/2007 [facility] PSA Screening 4.74 NG/ML High 0-4 124, test finding [address] [place], [place] [address] [phone] Lipid Profile 09/26/2007 [facility] Cholesterol/H 5.38 High 1- 4.97 (Trig/Chol/HDL [address] Ratio AVERAGE ) [place], [place] [address] [phone] Cholesterol 226 mg/dL High Less Than 200 126 Triglyceride 168 mg/dL 40-200 High Density Lipoprotein 42 mg/dL 40-60 Low Density Lipoprotein 150 mg/dL High Less Than 100 127 Laboratory test 06/27/2007 [facility] PSA Screening 4.66 NG/ML High 0-4 [address] [place], [place] [address] [phone] Lipid Profile 06/27/2007 [facility] Cholesterol/H 4.77 1- 4.97 (Trig/Chol/HDL) [address] [place] [address] [phone] Cholesterol 229 mg/dL High Less Than 200 129 Triglyceride 125 mg/dL 40-200 High Density Lipoprotein 48 mg/dL 40-60 Low Density Lipoprotein 156 mg/dL High Less Than 100 130 1 [id number] 2 SEE RESULT BELOW Name: MOUSTAPHA CHRISTINE : [address]: Uvaldo Dickey MD Acct: [id number] Unit: [id number] AGE: 68 Location: [facility] Re12/21/18 SEX: M Status: DEP REF SPEC: [id number] PAO: 12/21/[address] [facility] [address]: Uvaldo Dickey MD REQ: [id number] RECD: 12/21/18-121 STATUS: ROSANGELA SU[facility] DR: Ken Arenas MD PC _ ORDERED: LEVEL 4/2 COMMENTS: [id number] FINAL DIAGNOSIS 1. Colon, sigmoid at 20 cm, biopsy: -- Inflammatory (juvenile) polyp. 2. Colon, transverse, biopsy: -- Tubular adenoma. -- No high grade dysplasia or malignancy. CLINICAL HISTORY Follow up tubular adenoma POST-OPERATIVE DIAGNOSIS Colonoscopy to cecum with ease; polyp at 15 cm approximately 9 mm GROSS DESCRIPTION 1. The specimen is received in formalin labeled, Sigmoid Colon Polyp at 20 cm, and consists of a 0.9 x 0.7 x 0.6 cm moncada-pink lobulated polypoid soft tissue fragment which is inked, trisected and entirely submitted in one cassette. 2. The specimen is received in formalin labeled, Transverse Colon Polyp, and consists of two moncada-white irregular to polypoid soft tissue fragments measuring 0.3 x 0.2 x 0.1 cm and 0.8 x 0.4 x 0.2 cm which are entirely submitted in one cassette. CONTINUED ON NEXT PAGE DEPARTMENT OF PATHOLOGY, [address] [place] [address] Octavio Nelson M.D. Director [facility] # [id number] RUN DATE: 12/22/18 [facility] LAB LIVE PAGE 2 Patient: EMMETTMOUSTAPHA [id number] (Continued) GROSS DESCRIPTION (Continued) Signed by and Reported on: Kimberly Oconnor MD 12/22/18 1209 END OF REPORT DEPARTMENT OF PATHOLOGY, [address] [place] [address] Octavio Nelson M.D. Director [facility] # [id number] 3 Serum levels of PSA measured using the Merkle DXI Hybritech immunoassay should not be interpreted as absolute evidence of the presence or absence of disease. The PSA value should be used in conjunction with other pertinent clinical diagnostic procedures. A PSA value in the range of 0.1 to 0.6 ng/ml is indeterminate if being used as an indicator of recurrent or residual disease. The values obtained with different assay methods or kits cannot be used interchangeably. 4 Serum levels of PSA measured using the [place] X DXI Hybritech immunoassay should not be interpreted as absolute evidence of the presence or absence of disease. The PSA value should be used in conjunction with other pertinent clinical diagnostic procedures. A PSA value in the range of 0.1 to 0.6 ng/ml is indeterminate if being used as an indicator of recurrent or residual disease. The values obtained with different assay methods or kits cannot be used interchangeably. 5 Serum levels of PSA measured using the [place] X DXI Hybritech immunoassay should not be interpreted as absolute evidence of the presence or absence of disease. The PSA value should be used in conjunction with other pertinent clinical diagnostic procedures. The values obtained with different assay methods or kits cannot be used interchangeably. 6 [id number] 7 SEE RESULT BELOW Name: MOUSTAPHA CHRISTINE : [address]: Tylor Moya MD Acct: [id number] Unit: [id number] AGE: 67 Location: [facility] Re10/25/17 SEX: M Status: REG REF SPEC: [id number] PAO: 10/25/17- SUBM DR: Tylor Moya MD REQ: [id number] RECD: 10/25/17-1325 STATUS: ROSANGELA SUH DR: Guicho Figueredo III, MD _ ORDERED: S PATH PROST BX/4, IMMUNO-FIRST/2, IMMUNO-ADDL/4 COMMENTS: [id number] FINAL DIAGNOSIS 1. Prostate, left apex, biopsy: -- Benign prostatic tissue. 2. Prostate, left base, biopsy: -- Benign prostatic tissue. 3. Prostate, right apex, biopsy: -- Prostate adenocarcinoma, small acinar type, with: Diego score: 4+4=8 (grade group 4). Extent of local invasion: Involves 2 of 4 cores and approximately 2% of tissue; longest linear focus 0.5 mm. Perineural invasion: Not identified. Lymphovascular invasion: Not identified. Other findings: Immunohistochemistry, with appropriately reacting controls, was performed and shows lesional cells to be negative for CD68 and positive for PSA with absent p63 and high molecular weight cytokeratin staining, supporting the diagnosis. 4. Prostate, right base, biopsy: -- Benign prostatic tissue. COMMENT: Immunohistochemical stains, with appropriately reacting controls, were performed in sections cut from specimen 4 for high molecular weight cytokeratin and p63 and show intact basal cell staining throughout, supporting the diagnosis. Dr. Nelson reviewed this case in intradepartmental consultation and agrees with the diagnosis. CONTINUED ON NEXT PAGE * ML=Testing performed at Main Lab DEPARTMENT OF PATHOLOGY, [address] [place] [address] Octavio Nelson M.D. Director [facility] # [id number] RUN DATE: 10/27/17 [facility] LAB LIVE PAGE 2 Patient: MOUSTAPHA CHRISTINE [id number] (Continued) CLINICAL HISTORY (Continued) CLINICAL HISTORY History of prostate carcinoma, 02/19 ? benign prostatic hypertrophy, 10/25 ? Diego 7 right apex PRE-OPERATIVE DIAGNOSIS PSA elevation, PSA 9.031; right lobe firmer GROSS DESCRIPTION 1. The specimen is received in formalin labeled, Left Prostate Lobe [place], and consists of three moncada-pink soft tissue cores averaging 1.4 x 0.1 cm which are submitted entirely in one cassette. 2. The specimen is received in formalin labeled, Left Prostate Lobe Base, and consists of three moncada-pink soft tissue cores ranging from 1.4 x 0.1 cm to 1.8 x 0.1 cm which are submitted entirely in one cassette. 3. The specimen is received in formalin labeled, Right Prostate Lobe [place], and consists of four moncada-pink soft tissue cores ranging from 1.3 x 0.1 cm to 1.8 x 0.1 cm which are submitted entirely in one cassette. 4. The specimen is received in formalin labeled, Right Prostate Lobe Base, and consists of three moncada-pink soft tissue cores averaging 1.4 x 0.1 cm which are submitted entirely in one cassette. Signed (signature on file) Kimberly Oconnor MD [id number] END OF REPORT * ML=Testing performed at Main Lab DEPARTMENT OF PATHOLOGY, [address] [place] [address] Octavio Nelson M.D. Director [facility] # [id number] 8 Serum levels of PSA measured using the [place] X DXI Hybritech immunoassay should not be interpreted as absolute evidence of the presence or absence of disease. The PSA value should be used in conjunction with other pertinent clinical diagnostic procedures. The values obtained with different assay methods or kits cannot be used interchangeably. 9 Serum levels of PSA measured using the [place] DXI Hybritech immunoassay should not be interpreted as absolute evidence of the presence or absence of disease. The PSA value should be used in conjunction with other pertinent clinical diagnostic procedures. The values obtained with different assay methods or kits cannot be used interchangeably. 10 Desirable <150 Borderline high 150-199 High 200-499 Very High >500 11 Desirable <200 Borderline high 200-239 High >239 12 Low <40 Desirable: 40-60 High: >60 13 Desirable: <100 mg/dL Near Optimal: 100-129 mg/dL Borderline High: 130-159 mg/dL High: 160-189 mg/dL Very High: >189 mg/dL 14 Because ethnic data is not always readily available, this report includes an eGFR for both -Americans and non- Americans. The National Kidney Disease Education Program (NKDEP) does not endorse the use of the MDRD equation for patients that are not between the ages of 18 and 70, are , have extremes of body size, muscle mass, or nutritional status, or are non- or non-. According to the National Kidney Foundation, irrespective of diagnosis, the stage of the disease is based on the level of kidney function: Stage Description GFR(mL/min/1.73 m(2)) 1 Kidney damage with normal or decreased GFR 90 2 Kidney damage with mild decrease in GFR 60-89 3 Moderate decrease in GFR 30-59 4 Severe decrease in GFR 15-29 5 Kidney failure <15 (or dialysis) 15 Serum levels of PSA measured using the Merkle DXI Hybritech immunoassay should not be interpreted as absolute evidence of the presence or absence of disease. The PSA value should be used in conjunction with other pertinent clinical diagnostic procedures. The values obtained with different assay methods or kits cannot be used interchangeably. 16 Because ethnic data is not always readily available, this report includes an eGFR for both -Americans and non- Americans. The National Kidney Disease Education Program (NKDEP) does not endorse the use of the MDRD equation for patients that are not between the ages of 18 and 70, are , have extremes of body size, muscle mass, or nutritional status, or are non- or non-. According to the National Kidney Foundation, irrespective of diagnosis, the stage of the disease is based on the level of kidney function: Stage Description GFR(mL/min/1.73 m(2)) 1 Kidney damage with normal or decreased GFR 90 2 Kidney damage with mild decrease in GFR 60-89 3 Moderate decrease in GFR 30-59 4 Severe decrease in GFR 15-29 5 Kidney failure <15 (or dialysis) 17 Desirable <150 Borderline high 150-199 High 200-499 Very High >500 18 Desirable <200 Borderline high 200-239 High >239 19 Low <40 Desirable: 40-60 High: >60 20 Desirable: <100 mg/dL Near Optimal: 100-129 mg/dL Borderline High: 130-159 mg/dL High: 160-189 mg/dL Very High: >189 mg/dL 21 Serum levels of PSA measured using the Merkle DXI Hybritech immunoassay should not be interpreted as absolute evidence of the presence or absence of disease. The PSA value should be used in conjunction with other pertinent clinical diagnostic procedures. The values obtained with different assay methods or kits cannot be used interchangeably. 22 Serum levels of PSA measured using the Lal[employer] [place] DXI Hybritech immunoassay should not be interpreted as absolute evidence of the presence or absence of disease. The PSA value should be used in conjunction with other pertinent clinical diagnostic procedures. The values obtained with different assay methods or kits cannot be used interchangeably. 23 RUN DATE: 10/31/14 [facility] LAB LIVE PAGE 1 RUN TIME: [address] [place] [id number] Specimen Inquiry Name: MOUSTAPHA CHRISTINE : [address]: Tylor Moya MD Acct: [id number] Unit: [id number] AGE: 64 Location: [facility] Re10/30/14 SEX: M Status: REG REF SPEC: [id number] PAO: 10/30/14- SUBM DR: Tylor Moya MD REQ: [id number] RECD: 10/30/141332 STATUS: ROSANGELA SUH DR: Guicho Figueredo III, MD _ ORDERED: LEVEL IV/4 FINAL DIAGNOSIS 1. Prostate, left apex, biopsy: -- Benign prostatic tissue. 2. Prostate, left base, biopsy: -- Benign prostatic tissue. 3. Prostate, right apex, biopsy: -- Prostate adenocarcinoma, small acinar type, with: Amoret score: 3+4=7. Extent of local invasion: Involves 2 of 3 cores and approximately 5% of sampled tissue. Perineural invasion: Not identified. Lymphovascular invasion: Not identified. Other findings: None. 4. Prostate, right base, biopsy: -- Benign prostatic tissue. COMMENT: Dr. Nelson reviewed this case in intradepartmental consultation and agrees with the diagnosis. CLINICAL HISTORY 02/09 - Benign prostatic hypertrophy. PRE-OPERATIVE DIAGNOSIS Elevated PSA, enlarged prostate. PSA 8.21 CONTINUED ON NEXT PAGE * ML=Testing performed at Main Lab DEPARTMENT OF PATHOLOGY, [facility] [employer] [place], [place] [address] Octavio Nelson M.D. Director [facility] # [id number] RUN DATE: 10/31/14 [facility] LAB LIVE PAGE 2 RUN TIME: 1341 [facility] [employer] [place], [place] [address] Specimen Inquiry Patient: MOUSTAPHA CHRISTINE [id number] (Continued) POST-OPERATIVE DIAGNOSIS (Continued) POST-OPERATIVE DIAGNOSIS GROSS DESCRIPTION 1. The specimen is received in formalin labeled, Left Prostate Lobe [place], and consists of three moncada soft tissue cores averaging 1.7 x 0.1 cm, which are submitted entirely in one cassette. 2. The specimen is received in formalin labeled, Left Prostate Lobe Base, and consists of three moncada soft tissue cores averaging 1.6 x 0.1 cm, which are submitted entirely in one cassette. 3. The specimen is received in formalin labeled, Right Prostate Lobe [place], and consists of four moncada soft tissue cores ranging from 0.4 x 0.1 cm to 1.8 x 0.1 cm, which are submitted entirely in one cassette. 4. The specimen is received in formalin labeled, Right Prostate Lobe Base, and consists of three moncada soft tissue cores ranging from 1.5 x 0.1 cm to 2.2 x 0.1 cm, which are submitted entirely in one cassette. Signed (signature on file) Kimberly Oconnor MD 1341 END OF REPORT * ML=Testing performed at Main Lab DEPARTMENT OF PATHOLOGY, [address] [place] [address] Octavio Nelson M.D. Director [facility] # [id number] 24 Serum levels of PSA measured using the Lalito [place] DXI Hybritech immunoassay should not be interpreted as absolute evidence of the presence or absence of disease. The PSA value should be used in conjunction with other pertinent clinical diagnostic procedures. The values obtained with different assay methods or kits cannot be used interchangeably. 25 FASTING 10 HOUR 26 Because ethnic data is not always readily available, this report includes an eGFR for both -Americans and non- Americans. The National Kidney Disease Education Program (NKDEP) does not endorse the use of the MDRD equation for patients that are not between the ages of 18 and 70, are , have extremes of body size, muscle mass, or nutritional status, or are non- or non-. According to the National Kidney Foundation, irrespective of diagnosis, the stage of the disease is based on the level of kidney function: Stage Description GFR(mL/min/1.73 m(2)) 1 Kidney damage with normal or decreased GFR 90 2 Kidney damage with mild decrease in GFR 60-89 3 Moderate decrease in GFR 30-59 4 Severe decrease in GFR 15-29 5 Kidney failure <15 (or dialysis) 27 Desirable <150 Borderline high 150-199 High 200-499 Very High >500 28 Desirable <200 Borderline high 200-239 High >239 29 Low <40 Desirable: 40-60 High: >60 30 Desirable <100 Near Optimal 100-129 Borderline high 130-159 High 160-189 Very High >189 31 RUN DATE: 04/11/14 [facility] LAB LIVE PAGE 1 RUN TIME: [address] [place] [address] Specimen Inquiry Name: MOUSTAPHA CHRISTINE LEILANISTORMY : [address]: Jey Truong MD Acct: [id number] Unit: [id number] AGE: 63 Location: ENDO Re04/09/14 SEX: M Status: REG REF SPEC: [id number] PAO: 04/09/14- SUBM DR: Jey Truong MD REQ: [id number] RECD: 04/09/14 STATUS: ROSANGELA SUH DR: Guicho Figueredo III, MD _ ORDERED: LEVEL IV/2 FINAL DIAGNOSIS 1. Colon, cecum, biopsy: A. Tubular adenoma. B. No high grade dysplasia or malignancy. 2. Colon, descending, biopsy: Colonic mucosa with surface hyperplastic change. CLINICAL HISTORY Screening colonoscopy with personal history of colon polyps (2008) POST-OPERATIVE DIAGNOSIS Screening colonoscopy into terminal ileum, prep good - 3 small polyps removed GROSS DESCRIPTION 1. The specimen is received in formalin labeled Moustapha Khon Emmett, Biopsy Cecal Polyps, and consists of two moncada, irregular soft tissue fragments averaging 0.4 x 0.3 x 0.2 cm. Submitted entirely, one cassette. 2. The specimen is received in formalin labeled Moustapha Khon Emmett, Biopsy Descending Colon Polyps, and consists of a 0.7 x 0.2 x 0.1 cm. moncada-brown, irregular soft tissue fragment. Submitted entirely, one cassette. 1. Signed (signature on file) Kimberly Oconnor MD 11/24 1508 END OF REPORT * ML=Testing performed at Main Lab DEPARTMENT OF PATHOLOGY, [address] [place] [address] Octavio Nelson M.D. Director [facility] # [id number] 32 Serum levels of PSA measured using the [place] [place] DXI Hybritech immunoassay should not be interpreted as absolute evidence of the presence or absence of disease. The PSA value should be used in conjunction with other pertinent clinical diagnostic procedures. The values obtained with different assay methods or kits cannot be used interchangeably. 33 Because ethnic data is not always readily available, this report includes an eGFR for both -Americans and non- Americans. The National Kidney Disease Education Program (NKDEP) does not endorse the use of the MDRD equation for patients that are not between the ages of 18 and 70, are , have extremes of body size, muscle mass, or nutritional status, or are non- or non-. According to the National Kidney Foundation, irrespective of diagnosis, the stage of the disease is based on the level of kidney function: Stage Description GFR(mL/min/1.73 m(2)) 1 Kidney damage with normal or decreased GFR 90 2 Kidney damage with mild decrease in GFR 60-89 3 Moderate decrease in GFR 30-59 4 Severe decrease in GFR 15-29 5 Kidney failure <15 (or dialysis) 34 HDL Interpretation: Undesirable: High Risk: Less than 40 mg/dL Desirable: Low Risk: Greater than 60 mg/dL 35 LDL Interpretation: Low Risk Optimal Level: LDL Less than 100 mg/dL Near or Above Optimal: LDL 100-129 mg/dL Borderline High Risk: LDL 130-159 mg/dL High Risk: LDL 160-189 mg/dL Very High Risk: LDL Greater than 189 mg/dL 36 Serum levels of PSA measured using the Merkle DXI Hybritech immunoassay should not be interpreted as absolute evidence of the presence or absence of disease. The PSA value should be used in conjunction with other pertinent clinical diagnostic procedures. The values obtained with different assay methods or kits cannot be used interchangeably. 37 Because ethnic data is not always readily available, this report includes an eGFR for both -Americans and non- Americans. The National Kidney Disease Education Program (NKDEP) does not endorse the use of the MDRD equation for patients that are not between the ages of 18 and 70, are , have extremes of body size, muscle mass, or nutritional status, or are non- or non-. According to the National Kidney Foundation, irrespective of diagnosis, the stage of the disease is based on the level of kidney function: Stage Description GFR(mL/min/1.73 m(2)) 1 Kidney damage with normal or decreased GFR 90 2 Kidney damage with mild decrease in GFR 60-89 3 Moderate decrease in GFR 30-59 4 Severe decrease in GFR 15-29 5 Kidney failure <15 (or dialysis) 38 HDL Interpretation: Undesirable: High Risk: Less than 40 MG/DL Desirable: Low Risk: Greater than 60 MG/DL 39 LDL Interpretation: Low Risk Optimal Level: LDL Less than 100 MG/DL Near or Above Optimal: LDL 100-129 MG/DL Borderline High Risk: LDL 130-159 MG/DL High Risk: LDL 160-189 MG/DL Very High Risk: LDL Greater than 189 MG/DL 40 * SERUM LEVELS OF PSA MEASURED USING THE Edai ACCESS HYBRITECH IMMUNOASSAY SHOULD NOT BE INTERPRETED ABSOLUTE EVIDENCE OF THE PRESENCE OR ABSENCE OF DISEASE. THE PSA VALUE SHOULD BE USED IN CONJUNCTION WITH OTHER PERTINENT CLINICAL DIAGNOSTIC PROCEDURES. The values obtained with different assay methods or kits cannot be used interchangeably. 41 Anion gap measurement may be of limited value in the presence of any alkalosis, especially in a combined acid base disorder. . 42 A metabolite of Naproxen, O-desmethylnaproxen, has been shown to interfere with the Jendrassik-Dona method for measuring total bilirubin. Samples from patients who have taken Naproxen have shown spurious elevation in total bilirubin levels. 43 Because ethnic data is not always readily available, this report includes an eGFR for both -Americans and non- Americans. The National Kidney Disease Education Program (NKDEP) does not endorse the use of the MDRD equation for patients that are not between the ages of 18 and 70, are , have extremes of body size, muscle mass, or nutritional status, or are non- or non-. According to the National Kidney Foundation, irrespective of diagnosis, the stage of the disease is based on the level of kidney function: Stage Description GFR(mL/min/1.73 m(2)) 1 Kidney damage with normal or decreased GFR 90 2 Kidney damage with mild decrease in GFR 60-89 3 Moderate decrease in GFR 30-59 4 Severe decrease in GFR 15-29 5 Kidney failure <15 (or dialysis) 44 CHOLESTEROL INTERPRETATION: Desirable: Less than 200 MG/DL Borderline-High Risk: 200-239 MG/DL High-Risk: 240 MG/DL and over 45 HDL INTERPRETATION: Undesirable: High Risk: Less than 40 MG/DL Desirable: Low Risk: Greater than 60 MG/DL 46 LDL INTERPRETATION: Low Risk Optimal Level: LDL Less than 100 MG/DL Near or Above Optimal: LDL 100-129 MG/DL Borderline High Risk: LDL 130-159 MG/DL High Risk: LDL 160-189 MG/DL Very High Risk: LDL Greater than 189 MG/DL 47 Anion gap measurement may be of limited value in the presence of any alkalosis, especially in a combined acid base disorder. . 48 Because ethnic data is not always readily available, this report includes an eGFR for both -Americans and non- Americans. The National Kidney Disease Education Program (NKDEP) does not endorse the use of the MDRD equation for patients that are not between the ages of 18 and 70, are , have extremes of body size, muscle mass, or nutritional status, or are non- or non-. According to the National Kidney Foundation, irrespective of diagnosis, the stage of the disease is based on the level of kidney function: Stage Description GFR(mL/min/1.73 m(2)) 1 Kidney damage with normal or decreased GFR 90 2 Kidney damage with mild decrease in GFR 60-89 3 Moderate decrease in GFR 30-59 4 Severe decrease in GFR 15-29 5 Kidney failure <15 (or dialysis) 49 Anion gap measurement may be of limited value in the presence of any alkalosis, especially in a combined acid base disorder. . 50 Because ethnic data is not always readily available, this report includes an eGFR for both -Americans and non- Americans. The National Kidney Disease Education Program (NKDEP) does not endorse the use of the MDRD equation for patients that are not between the ages of 18 and 70, are , have extremes of body size, muscle mass, or nutritional status, or are non- or non-. According to the National Kidney Foundation, irrespective of diagnosis, the stage of the disease is based on the level of kidney function: Stage Description GFR(mL/min/1.73 m(2)) 1 Kidney damage with normal or decreased GFR 90 2 Kidney damage with mild decrease in GFR 60-89 3 Moderate decrease in GFR 30-59 4 Severe decrease in GFR 15-29 5 Kidney failure <15 (or dialysis) 51 Anion gap measurement may be of limited value in the presence of any alkalosis, especially in a combined acid base disorder. . 52 A metabolite of Naproxen, O-desmethylnaproxen, has been shown to interfere with the Jendrassik-Shadybrook method for measuring total bilirubin. Samples from patients who have taken Naproxen have shown spurious elevation in total bilirubin levels. 53 Because ethnic data is not always readily available, this report includes an eGFR for both -Americans and non- Americans. The National Kidney Disease Education Program (NKDEP) does not endorse the use of the MDRD equation for patients that are not between the ages of 18 and 70, are , have extremes of body size, muscle mass, or nutritional status, or are non- or non-. According to the National Kidney Foundation, irrespective of diagnosis, the stage of the disease is based on the level of kidney function: Stage Description GFR(mL/min/1.73 m(2)) 1 Kidney damage with normal or decreased GFR 90 2 Kidney damage with mild decrease in GFR 60-89 3 Moderate decrease in GFR 30-59 4 Severe decrease in GFR 15-29 5 Kidney failure <15 (or dialysis) 54 CHOLESTEROL INTERPRETATION: Desirable: Less than 200 MG/DL Borderline-High Risk: 200-239 MG/DL High-Risk: 240 MG/DL and over 55 HDL INTERPRETATION: Undesirable: High Risk: Less than 40 MG/DL Desirable: Low Risk: Greater than 60 MG/DL 56 LDL INTERPRETATION: Low Risk Optimal Level: LDL Less than 100 MG/DL Near or Above Optimal: LDL 100-129 MG/DL Borderline High Risk: LDL 130-159 MG/DL High Risk: LDL 160-189 MG/DL Very High Risk: LDL Greater than 189 MG/DL 57 * SERUM LEVELS OF PSA MEASURED USING THE Edai ACCESS HYBRITECH IMMUNOASSAY SHOULD NOT BE INTERPRETED ABSOLUTE EVIDENCE OF THE PRESENCE OR ABSENCE OF DISEASE. THE PSA VALUE SHOULD BE USED IN CONJUNCTION WITH OTHER PERTINENT CLINICAL DIAGNOSTIC PROCEDURES. 58 CHOLESTEROL INTERPRETATION: Desirable: Less than 200 MG/DL Borderline-High Risk: 200-239 MG/DL High-Risk: 240 MG/DL and over 59 HDL INTERPRETATION: Undesirable: High Risk: Less than 40 MG/DL Desirable: Low Risk: Greater than 60 MG/DL 60 LDL INTERPRETATION: Low Risk Optimal Level: LDL Less than 100 MG/DL Near or Above Optimal: LDL 100-129 MG/DL Borderline High Risk: LDL 130-159 MG/DL High Risk: LDL 160-189 MG/DL Very High Risk: LDL Greater than 189 MG/DL 61 Anion gap measurement may be of limited value in the presence of any alkalosis, especially in a combined acid base disorder. . 62 A metabolite of Naproxen, O-desmethylnaproxen, has been shown to interfere with the Jendrassik-Dona method for measuring total bilirubin. Samples from patients who have taken Naproxen have shown spurious elevation in total bilirubin levels. 63 Because ethnic data is not always readily available, this report includes an eGFR for both -Americans and non- Americans. The National Kidney Disease Education Program (NKDEP) does not endorse the use of the MDRD equation for patients that are not between the ages of 18 and 70, are , have extremes of body size, muscle mass, or nutritional status, or are non- or non-. According to the National Kidney Foundation, irrespective of diagnosis, the stage of the disease is based on the level of kidney function: Stage Description GFR(mL/min/1.73 m(2)) 1 Kidney damage with normal or decreased GFR 90 2 Kidney damage with mild decrease in GFR 60-89 3 Moderate decrease in GFR 30-59 4 Severe decrease in GFR 15-29 5 Kidney failure <15 (or dialysis) 64 * SERUM LEVELS OF PSA MEASURED USING THE Edai ACCESS HYBRITECH IMMUNOASSAY SHOULD NOT BE INTERPRETED ABSOLUTE EVIDENCE OF THE PRESENCE OR ABSENCE OF DISEASE. THE PSA VALUE SHOULD BE USED IN CONJUNCTION WITH OTHER PERTINENT CLINICAL DIAGNOSTIC PROCEDURES. 65 -- REFERENCE VALUE -- <20.0 (Negative) 20.0-39.9 (Weak Positive) 40.0-59.9 (Positive) >=60.0 (Strong Positive) Test Performed by: [facility] Dpt of Lab Med and Pathology [address] [place] [address] [employer] Department Worker: Clement Loera III, M.D. 66 Anion gap measurement may be of limited value in the presence of any alkalosis, especially in a combined acid base disorder. . 67 Note change in reference range as of 05/31/08. The change was based on recommendations from the [place] [employer]. 68 A metabolite of Naproxen, O-desmethylnaproxen, has been shown to interfere with the Jendrassik-Shadybrook method for measuring total bilirubin. Samples from patients who have taken Naproxen have shown spurious elevation in total bilirubin levels. 69 Because ethnic data is not always readily available, this report includes an eGFR for both -Americans and non- Americans. The National Kidney Disease Education Program (NKDEP) does not endorse the use of the MDRD equation for patients that are not between the ages of 18 and 70, are , have extremes of body size, muscle mass, or nutritional status, or are non- or non-. According to the National Kidney Foundation, irrespective of diagnosis, the stage of the disease is based on the level of kidney function: Stage Description GFR(mL/min/1.73 m(2)) 1 Kidney damage with normal or decreased GFR 90 2 Kidney damage with mild decrease in GFR 60-89 3 Moderate decrease in GFR 30-59 4 Severe decrease in GFR 15-29 5 Kidney failure <15 (or dialysis) 70 Serologic response to B. burgdorferi infection is not detected, but cannot rule out early infection during which low or undetectable antibody levels to B. burgdorferi may be present. If clinically indicated, a new serum specimen should be submitted in 7-14 days. Test Performed by: [facility] Dpt of Lab Med and Pathology [address] [place], [place] [id number] [employer] Department Worker: Clement Loera III, M.D. 71 CHOLESTEROL INTERPRETATION: Desirable: Less than 200 MG/DL Borderline-High Risk: 200-239 MG/DL High-Risk: 240 MG/DL and over 72 HDL INTERPRETATION: Undesirable: High Risk: Less than 40 MG/DL Desirable: Low Risk: Greater than 60 MG/DL 73 LDL INTERPRETATION: Low Risk Optimal Level: LDL Less than 100 MG/DL Near or Above Optimal: LDL 100-129 MG/DL Borderline High Risk: LDL 130-159 MG/DL High Risk: LDL 160-189 MG/DL Very High Risk: LDL Greater than 189 MG/DL 74 Anion gap measurement may be of limited value in the presence of any alkalosis, especially in a combined acid base disorder. . 75 Note change in reference range as of 05/31/08. The change was based on recommendations from the [place] [employer]. 76 A metabolite of Naproxen, O-desmethylnaproxen, has been shown to interfere with the Jendrassik-Dona method for measuring total bilirubin. Samples from patients who have taken Naproxen have shown spurious elevation in total bilirubin levels. 77 Because ethnic data is not always readily available, this report includes an eGFR for both -Americans and non- Americans. The National Kidney Disease Education Program (NKDEP) does not endorse the use of the MDRD equation for patients that are not between the ages of 18 and 70, are , have extremes of body size, muscle mass, or nutritional status, or are non- or non-. According to the National Kidney Foundation, irrespective of diagnosis, the stage of the disease is based on the level of kidney function: Stage Description GFR(mL/min/1.73 m(2)) 1 Kidney damage with normal or decreased GFR 90 2 Kidney damage with mild decrease in GFR 60-89 3 Moderate decrease in GFR 30-59 4 Severe decrease in GFR 15-29 5 Kidney failure <15 (or dialysis) 78 * SERUM LEVELS OF PSA MEASURED USING THE Edai ACCESS HYBRITECH IMMUNOASSAY SHOULD NOT BE INTERPRETED ABSOLUTE EVIDENCE OF THE PRESENCE OR ABSENCE OF DISEASE. THE PSA VALUE SHOULD BE USED IN CONJUNCTION WITH OTHER PERTINENT CLINICAL DIAGNOSTIC PROCEDURES. 79 Anion gap measurement may be of limited value in the presence of any alkalosis, especially in a combined acid base disorder. . 80 Note change in reference range as of 05/31/08. The change was based on recommendations from the [place] [employer]. 81 Please note change in reference range effective 08 . 82 A metabolite of Naproxen, O-desmethylnaproxen, has been shown to interfere with the Jendrassik-Shadybrook method for measuring total bilirubin. Samples from patients who have taken Naproxen have shown spurious elevation in total bilirubin levels. 83 Because ethnic data is not always readily available, this report includes an eGFR for both -Americans and non- Americans. The National Kidney Disease Education Program (NKDEP) does not endorse the use of the MDRD equation for patients that are not between the ages of 18 and 70, are , have extremes of body size, muscle mass, or nutritional status, or are non- or non-. According to the National Kidney Foundation, irrespective of diagnosis, the stage of the disease is based on the level of kidney function: Stage Description GFR(mL/min/1.73 m(2)) 1 Kidney damage with normal or decreased GFR 90 2 Kidney damage with mild decrease in GFR 60-89 3 Moderate decrease in GFR 30-59 4 Severe decrease in GFR 15-29 5 Kidney failure <15 (or dialysis) 84 CHOLESTEROL INTERPRETATION: Desirable: Less than 200 MG/DL Borderline-High Risk: 200-239 MG/DL High-Risk: 240 MG/DL and over 85 HDL INTERPRETATION: Undesirable: High Risk: Less than 40 MG/DL Desirable: Low Risk: Greater than 60 MG/DL 86 LDL INTERPRETATION: Low Risk Optimal Level: LDL Less than 100 MG/DL Near or Above Optimal: LDL 100-129 MG/DL Borderline High Risk: LDL 130-159 MG/DL High Risk: LDL 160-189 MG/DL Very High Risk: LDL Greater than 189 MG/DL 87 * SERUM LEVELS OF PSA MEASURED USING THE Edai ACCESS HYBRITECH IMMUNOASSAY SHOULD NOT BE INTERPRETED ABSOLUTE EVIDENCE OF THE PRESENCE OR ABSENCE OF DISEASE. THE PSA VALUE SHOULD BE USED IN CONJUNCTION WITH OTHER PERTINENT CLINICAL DIAGNOSTIC PROCEDURES. 88 PATIENT MAY HAVE RESULTS PER DOCTOR'S AUTHORIZATION. Questions regarding this report should be directed to your doctor. 89 Anion gap measurement may be of limited value in the presence of any alkalosis, especially in a combined acid base disorder. . 90 Note change in reference range as of 05/31/08. The change was based on recommendations from the [employer]. 91 Please note change in reference range effective 08 . 92 Because ethnic data is not always readily available, this report includes an eGFR for both -Americans and non- Americans. The National Kidney Disease Education Program (NKDEP) does not endorse the use of the MDRD equation for patients that are not between the ages of 18 and 70, are , have extremes of body size, muscle mass, or nutritional status, or are non- or non-. According to the National Kidney Foundation, irrespective of diagnosis, the stage of the disease is based on the level of kidney function: Stage Description GFR(mL/min/1.73 m(2)) 1 Kidney damage with normal or decreased GFR 90 2 Kidney damage with mild decrease in GFR 60-89 3 Moderate decrease in GFR 30-59 4 Severe decrease in GFR 15-29 5 Kidney failure <15 (or dialysis) 93 * SERUM LEVELS OF PSA MEASURED USING THE LALITO [employer]uru ACCESS HYBRITECH IMMUNOASSAY SHOULD NOT BE INTERPRETED ABSOLUTE EVIDENCE OF THE PRESENCE OR ABSENCE OF DISEASE. THE PSA VALUE SHOULD BE USED IN CONJUNCTION WITH OTHER PERTINENT CLINICAL DIAGNOSTIC PROCEDURES. 94 CHOLESTEROL INTERPRETATION: Desirable: Less than 200 MG/DL Borderline-High Risk: 200-239 MG/DL High-Risk: 240 MG/DL and over 95 HDL INTERPRETATION: Undesirable: High Risk: Less than 40 MG/DL Desirable: Low Risk: Greater than 60 MG/DL 96 LDL INTERPRETATION: Low Risk Optimal Level: LDL Less than 100 MG/DL Near or Above Optimal: LDL 100-129 MG/DL Borderline High Risk: LDL 130-159 MG/DL High Risk: LDL 160-189 MG/DL Very High Risk: LDL Greater than 189 MG/DL 97 FASTING 98 CHOLESTEROL INTERPRETATION: Desirable: Less than 200 MG/DL Borderline-High Risk: 200-239 MG/DL High-Risk: 240 MG/DL and over 99 HDL INTERPRETATION: Undesirable: High Risk: Less than 40 MG/DL Desirable: Low Risk: Greater than 60 MG/DL 100 LDL INTERPRETATION: Low Risk Optimal Level: LDL Less than 100 MG/DL Near or Above Optimal: LDL 100-129 MG/DL Borderline High Risk: LDL 130-159 MG/DL High Risk: LDL 160-189 MG/DL Very High Risk: LDL Greater than 189 MG/DL 101 ----- RUN DATE: 02/06/09 [facility] NMI LIVE PAGE 1 RUN TIME: 1545 Specimen Inquiry RUN USER: INTERFACE -- [facility]MMETT[facility]AN [id number] Status: REG REF Re02/04/09 Age/Sex: 58/M Unit#: [id number] Location: [facility] : 49 -- Specimen: [id number] ROSANGELA Spec Date: 02/04/[address]: Jey mensah MD Spec Type: SURGICAL P Received: 02/04/09-1158 Copies to: Guicho Figueredo III, MD SPECIMEN BIOPSY POLYP DESCENDING COLON HISTORY POST-OP DIAGNOSIS: Small polyp removed CLINICAL INFORMATION: Screening colonoscopy; asymptomatic GROSS DESCRIPTION The specimen is received in formalin labelled Khon Emmett, Biopsy Polyp Descending Colon, and consists of a moncada, soft tissue fragment measuring 0.4 x 0.3 x 0.2 cm. Submitted entirely, one cassette. DIAGNOSIS Colon, descending, biopsy: A) Tubular adenoma. B) No high grade dysplasia or malignancy. Signed Electronically by: OCTAVIO NELSON MD 02/06/09 1545 -- -- DEPARTMENT OF PATHOLOGY, [address] [place] [address] [facility] Permit #[id number] Octavio Nelson M.D. Director Rose Jackson M.D. Stiff Neck Loader Dir chad -- 102 Anion gap measurement may be of limited value in the presence of any alkalosis, especially in a combined acid base disorder. . 103 Note change in reference range as of 05/31/08. The change was based on recommendations from the [place] [employer]. 104 Please note change in reference range effective 08 . 105 CHOLESTEROL INTERPRETATION: Desirable: Less than 200 MG/DL Borderline-High Risk: 200-239 MG/DL High-Risk: 240 MG/DL and over 106 HDL INTERPRETATION: Undesirable: High Risk: Less than 40 MG/DL Desirable: Low Risk: Greater than 60 MG/DL 107 LDL INTERPRETATION: Low Risk Optimal Level: LDL Less than 100 MG/DL Near or Above Optimal: LDL 100-129 MG/DL Borderline High Risk: LDL 130-159 MG/DL High Risk: LDL 160-189 MG/DL Very High Risk: LDL Greater than 189 MG/DL 108 * SERUM LEVELS OF PSA MEASURED USING THE Edai ACCESS HYBRITECH IMMUNOASSAY SHOULD NOT BE INTERPRETED ABSOLUTE EVIDENCE OF THE PRESENCE OR ABSENCE OF DISEASE. THE PSA VALUE SHOULD BE USED IN CONJUNCTION WITH OTHER PERTINENT CLINICAL DIAGNOSTIC PROCEDURES. 109 PATIENT MAY HAVE RESULTS PER DOCTOR'S AUTHORIZATION. Questions regarding this report should be directed to your doctor. 110 CHOLESTEROL INTERPRETATION: Desirable: Less than 200 MG/DL Borderline-High Risk: 200-239 MG/DL High-Risk: 240 MG/DL and over 111 HDL INTERPRETATION: Undesirable: High Risk: Less than 40 MG/DL Desirable: Low Risk: Greater than 60 MG/DL 112 LDL INTERPRETATION: Low Risk Optimal Level: LDL Less than 100 MG/DL Near or Above Optimal: LDL 100-129 MG/DL Borderline High Risk: LDL 130-159 MG/DL High Risk: LDL 160-189 MG/DL Very High Risk: LDL Greater than 189 MG/DL 113 * SERUM LEVELS OF PSA MEASURED USING THE LALITO [employer]uru ACCESS HYBRITECH IMMUNOASSAY SHOULD NOT BE INTERPRETED ABSOLUTE EVIDENCE OF THE PRESENCE OR ABSENCE OF DISEASE. THE PSA VALUE SHOULD BE USED IN CONJUNCTION WITH OTHER PERTINENT CLINICAL DIAGNOSTIC PROCEDURES. 114 Anion gap measurement may be of limited value in the presence of any alkalosis, especially in a combined acid base disorder. . 115 Please note change in reference range effective 08 . 116 CHOLESTEROL INTERPRETATION: Desirable: Less than 200 MG/DL Borderline-High Risk: 200-239 MG/DL High-Risk: 240 MG/DL and over 117 HDL INTERPRETATION: Undesirable: High Risk: Less than 40 MG/DL Desirable: Low Risk: Greater than 60 MG/DL 118 LDL INTERPRETATION: Low Risk Optimal Level: LDL Less than 100 MG/DL Near or Above Optimal: LDL 100-129 MG/DL Borderline High Risk: LDL 130-159 MG/DL High Risk: LDL 160-189 MG/DL Very High Risk: LDL Greater than 189 MG/DL 119 * SERUM LEVELS OF PSA MEASURED USING THE LALITO [employer] ACCESS HYBRITECH IMMUNOASSAY SHOULD NOT BE INTERPRETED ABSOLUTE EVIDENCE OF THE PRESENCE OR ABSENCE OF DISEASE. THE PSA VALUE SHOULD BE USED IN CONJUNCTION WITH OTHER PERTINENT CLINICAL DIAGNOSTIC PROCEDURES. 120 FASTING 121 Classification: Borderline High . 122 CALCULATED LDL APPROXIMATES THE VALUE OF A DIRECT LDL MEASUREMENT. Classification: Borderline High . 123 * SERUM LEVELS OF PSA MEASURED USING THE LALITO [employer] ACCESS HYBRITECH IMMUNOASSAY SHOULD NOT BE INTERPRETED ABSOLUTE EVIDENCE OF THE PRESENCE OR ABSENCE OF DISEASE. THE PSA VALUE SHOULD BE USED IN CONJUNCTION WITH OTHER PERTINENT CLINICAL DIAGNOSTIC PROCEDURES. 124 PATIENT MAY HAVE RESULTS PER DOCTOR'S AUTHORIZATION. Questions regarding this report should be directed to your doctor. 125 * SERUM LEVELS OF PSA MEASURED USING THE LALITO PARVEEN ACCESS HYBRITECH IMMUNOASSAY SHOULD NOT BE INTERPRETED ABSOLUTE EVIDENCE OF THE PRESENCE OR ABSENCE OF DISEASE. THE PSA VALUE SHOULD BE USED IN CONJUNCTION WITH OTHER PERTINENT CLINICAL DIAGNOSTIC PROCEDURES. 126 Classification: Borderline High . 127 CALCULATED LDL APPROXIMATES THE VALUE OF A DIRECT LDL MEASUREMENT. Classification: Borderline High . 128 * SERUM LEVELS OF PSA MEASURED USING THE LALITO [employer]uru ACCESS HYBRITECH IMMUNOASSAY SHOULD NOT BE INTERPRETED ABSOLUTE EVIDENCE OF THE PRESENCE OR ABSENCE OF DISEASE. THE PSA VALUE SHOULD BE USED IN CONJUNCTION WITH OTHER PERTINENT CLINICAL DIAGNOSTIC PROCEDURES. 129 Classification: Borderline High . 130 CALCULATED LDL APPROXIMATES THE VALUE OF A DIRECT LDL MEASUREMENT. Classification: Borderline High . Procedures Date Code Description Status 02/01/2019 61928 EKG Tracing & Interpretation Completed 12/21/2018 08152 Colonoscopy Flexible Remove Tumor/Polyp/Lesion Snare Completed Technique 12/21/2018 [id number] Colonoscopy Completed 12/13/2018 86634 Anoscopy Completed 09/21/201864984 Inject/Drain Joint/Bursa Major W/O US Completed 07/16/201718837 Inject/Drain Joint/Bursa Major W/O US Completed 04/05/201789685 Inject/Drain Joint/Bursa Major W/O US Completed 04/09/2014 [id number] Colonoscopy Completed 02/04/2009 [id number] Colonoscopy Completed 01/28/2009 42145 Treadmill Interp/Report Only Completed 01/28/2009 56158 Stress Test Supervsn W/Out I/R Completed 01/21/2009 18216 EKG Tracing & Interpretation Completed 11/15/2007 49744 Treadmill Interp/Report Only Completed 11/15/2007 10792 Treadmill Interp/Report Only Completed 11/15/2007 46779 Stress Test Supervsn W/Out I/R Completed Encounters Type Date Location Provider Dx Diagnosis Office Visit 02/01/2019 [facility] Naveed Mccrary Z01.810 Encounter for 3:40p Of Byron Armijo DO FACAlonso preprocedural cardiovascular examination I10 Essential (primary) hypertension M17.11 Unilateral primary osteoarthritis, right knee Office Visit 12/13/2018 10:00a Surgical LutherBurrows K64.0 [facility] Riki hemorrhoids [facility] [employer] K62.5 Hemorrhage of anus and rectum Office Visit 05/13/2018 2:45p Orthopedic Roxana Go M25.462 Effusion, left Services Of M.D. knee [facility] M25.562 Pain in left knee M25.461 Effusion, right knee M25.561 Pain in right knee M17.0 Bilateral primary osteoarthritis of knee M21.161 Varus deformity, not elsewhere classified, right knee M21.162 Varus deformity, not elsewhere classified, left knee Office Visit 03/23/2018 9:00a Orthopedic Services Roxana Go M25.561 Pain in right Of [facility] M.D. knee M25.562 Pain in left knee M25.461 Effusion, right knee M25.462 Effusion, left knee M17.0 Bilateral primary osteoarthritis of knee M21.162 Varus deformity, not elsewhere classified, left knee M21.161 Varus deformity, not elsewhere classified, right knee Office Visit 10/15/2017 10:45a Orthopedic Services Roxana Donavan, M25.561 Pain in right Of [facility] M.D. knee M25.461 Effusion, right knee M17.11 Unilateral primary osteoarthritis, right knee Office Visit 09/22/2017 10:45a Orthopedic Services Roxana Go, M25.561 Pain in right Of C.M.A. M.D. knee M25.461 Effusion, right knee M17.11 Unilateral primary osteoarthritis, right knee M21.161 Varus deformity, not elsewhere classified, right knee Office Visit 07/12/2017 2:40p [facility] Zahra Elizabeth, M25.561 Pain in right Medicine N.P. knee I10 Essential (primary) hypertension Office Visit 04/05/2017 10:00a Orthopedic Services Roxana Go, M25.561 Pain in right Of C.M.A. M.D. knee M25.461 Effusion, right knee M17.11 Unilateral primary osteoarthritis, right knee Office Visit 03/31/2017 4:00p [facility] Guicho Llanos M25.561 Pain in right knee Dylon Figueredo M.D. [facility] Office Visit 01/21/2017 9:20a [facility] Guicho Llanos M25.561 Pain in right knee Dylon Figueredo M.D. [facility] Office Visit 08/31/2016 9:00a [facility] Guicho Llanos I10 Essential Medicine Monserrat Figueredo M.D. (primary) [facility] hypertension E78.00 Pure hypercholesterolemia, unspecified C61 Malignant neoplasm of prostate Z23 Encounter for immunization Office Visit 08/12/2015 11:00a [facility] Guicho Llanos I10 Essential ( primary) Medicine Khushboo Figueredo hypertension E78.0 Pure hypercholesterolemia C61 Malignant neoplasm of prostate Office Visit 01/21/2015 10:00a [facility] Guicho Llanos 401.1 Hypertension Benign Medicine Khushboo Figueredo 272.0 Hypercholesterolemia Pure 185 Malignant Neoplasm Prostate v03.82 Streptococcus Pneumoniae Vaccination Spec Other Office Visit 2014 9:00a [facility] Guicho Llanos V72.81 Examination Medicine Khushboo Figueredo Preoperative Cardiovascular 366.9 Cataract Unspec 401.1 Hypertension Benign 272.0 Hypercholesterolemia Pure 600.20 Benign Localized Hyperplasia Prostate W/O Urinary Obstruct V04.81 Need For Prophylactic Vaccination & Inoculation/Influenza Office Visit 01/15/2014 9:40a [facility] E. 401.1 Hypertension Benign Dylon Figueredo M.D. 272.0 Hypercholesterolemia Pure 600.20 Benign Localized Hyperplasia Prostate W/O Urinary Obstruct V76.51 Special Screening For Malignant Neoplasms Colon Office Visit 05/19/2013 9:00a [facility] Guicho E. V70.0 Examination Medicine Khushboo Figueredo General Medical Routine AT [facility] Care Facility 401.1 Hypertension Benign 272.0 Hypercholesterolemia Pure 600.20 Benign Localized Hyperplasia Prostate W/O Urinary Obstruct 465.9 URI Upper Respiratory Infections Acute Unspec Sites Office Visit 09/05/2012 11:40a [facility] Guicho E. 401.1 Hypertension Benign Medicine Khushboo Figueredo 272.0 Hypercholesterolemia Pure 600.20 Benign Localized Hyperplasia Prostate W/O Urinary Obstruct Office Visit 03/28/2012 9:00a [facility] Guicho E. V70.0 Examination Medicine Khushboo Figueredo General Medical Routine AT Health Care Facility 401.1 Hypertension Benign 272.0 Hypercholesterolemia Pure 600.20 Benign Localized Hyperplasia Prostate W/O Urinary Obstruct Office Visit 09/28/2011 11:00a DO Not Use [facility] [employer] Gu[facility] E. 401.1 Hypertension Benign AT Ariel Figueredo M.D. 602.9 Prostate Disorder Unspec Office Visit 08/31/2011 9:40a DO Not Use [facility] [employer] Gu[facility]o E. 401.1 Hypertension Benign AT Ariel Figueredo M.D. Office Visit 07/17/2011 11:20a DO Not Use [employer] [facility] E. 401.1 Hypertension Benign AT Ariel Figueredo M.D. 719.48 Pain Joint Other Spec Sites 272.0 Hypercholesterolemia Pure V04.81 Need For Prophylactic Vaccination & Inoculation/Influenza Office Visit 08/29/2010 10:40a DO Not Use [employer] AT Guicho Llanos 719.48 Pain Joint Ariel Figueredo M.D. Other Spec Sites 796.2 Blood Pressure Reading Elevated W/O Hypertension 272.0 Hypercholesterolemia Pure 784.2 Swelling In Head & Neck Office Visit 07/14/2010 DO Not Use Gu[facility]o E. V04.81 Need For Prophylactic 3:00p [facility] [employer] AT Khushboo Figueredo Vaccination & [place] Inoculation/Influenza 784.2 Swelling In Head & Neck Office Visit 01/01/2010 10:40a DO Not Use [facility] [employer] AT [facility] E. 719.47 Pain Joint Ariel Figueredo M.D. Ankle & Foot Office Visit 11/13/2009 10:20a DO Not Use [employer] AT [facility] E. 719.43 Pain Joint Ariel Figueredo M.D. Forearm 796.2 Blood Pressure Reading Elevated W/O Hypertension Office Visit 03/25/2009 10:15a [facility] E. 602.9 Prostate AT Ryan Figueredo M.D. Disorder Unspec [place] 272.0 Hypercholesterolemia Pure 796.2 Blood Pressure Reading Elevated W/O Hypertension Office Visit 01/21/2009 11:15a [facility] E. 786.50 Pain Chest AT Ryan Figueredo M.D. Unspec [place] 272.0 Hypercholesterolemia Pure 796.2 Blood Pressure Reading Elevated W/O Hypertension Office Visit 09/13/2008 10:15a [facility] E. 790.93 Elevated AT Ryan Figueredo M.D. Prostate [place] Specific Antigen (PSA) 272.2 Hyperlipidemia Mixed Office Visit 06/04/2008 [facility] E. 272.0 Hypercholesterolemia Pure 9:30a Assoc AT Khushboo Figueredo [facility] Office Visit 05/08/2008 [address] [facility] E. 272.0 Hypercholesterolemia Pure 10:30a Assoc AT Khushboo Figueredo [facility] V06.5 Tetanus Diphtheria (DT) Office Visit 11/08/2007 [facility] E. 272.0 Hypercholesterolemia Pure 10:30a Assoc AT Khushboo Figueredo [facility] 796.2 Blood Pressure Reading Elevated W/O Hypertension 414.01 Coronary Atherosclerosis [place] Office Visit 07/11/2007 10:00a [facility] Gu[facility]o E. 796.2 Blood Pressure Assoc AT Khushboo Figueredo Reading Elevated [facility] W/O Hypertension 272.0 Hypercholesterolemia Pure 602.9 Prostate Disorder Unspec V04.81 Need For Prophylactic Vaccination & Inoculation/Influenza Plan of Treatment Future Appointment(s):03/27/2019 1:45 pm - Roxana Go M.D. at [facility].03/14/2019 12:00 pm - Dejan Langford PA-C at [facility]03/14/2019 12:00 pm - GILDARDO Talavera at [facility].03/14/2019 12:00 pm - Roxana Go M.D. at [facility]..03/01/2019 - Roxana Go M.D.M17.11 Unilateral primary osteoarthritis, right kneeFollow up:Follow up: 2 weeks after noxudlmS92.561 Pain in right knee
--- NOTE | 2019-03-14 15:10 | OP ---
Operative Report - Blank - Operative Report Date of Operation: 03/14/19 Note: JANET CHRISTINE 1950 Date of Surgery: 03/14/19 Roxana Go MD Anti Tank Missileman: Daisy EWING did help throughout the procedure with preparation of the knee, wound retraction, manipulation of the knee, and wound closure. Anesthesiologist: René Hunter MD Anesthesia Type: Spinal Preoperative Diagnosis: Right severe degenerative osteoarthritis of the knee Postoperative Diagnosis: As above Procedure Performed: Right Total Knee Arthroplasty Tourniquet time: 60 minutes Complications: None Specimen: Bone and cartilage from the right knee joint sent to pathology. Hardware Used: Cemented Marquis [employer] Nephew total knee hardware was used - For the femur a size 5 right narrow legion posterior stabilized femoral component, for the tibia a size 4 right milan II tibial baseplate, for the insert a size 9mm 3-4 posterior stabilized articular polyethylene insert, and for the patella a size 32 3-peg all poly patella. Brief History/Indication: JANET CHRISTINE was known in clinic and had a history of severe right knee pain and swelling. He failed conservative treatment with anti-inflammatories, pain pills, intra-articular injections and physical therapy. He elected to undergo right total knee arthroplasty due to continued pain and decreased quality of life. Radiographs showed severe end stage osteoarthritis of the knee with bone on bone contact. Informed consent was obtained from the patient. He understood the risks of surgery included but were not limited to: bleeding, infection, damage to nearby structures, intraoperative fracture, nerve palsy, failure of the hardware, early loosening, knee stiffness or loss of motion, anesthesia complications, stroke, heart attack , blood clot and . He wished to proceed. Intra-Operative Findings: Intraoperatively the patient was noted to have severe loss of cartilage in all 3 compartments of the knee. He had 15 degree varus deformity and 20 degree flexion contracture to begin the case. Description of the Procedure: JANET CHRISTINE was identified in the preanesthesia unit. His right knee was marked as the correct operative side. Informed consent was signed and placed in the chart. The patient was taken to the operating room and placed under anesthesia without complication. A dogn catheter was placed. A tourniquet was placed on the right thigh. The right lower extremity was prepped and draped in the usual sterile fashion. Preoperative time-out was made to correctly identify the patient, side and site. Appropriate intraoperative antibiotics were given within one hour of incision. Tourniquet was inflated. A midline incision was made and carried sharply down to the extensor mechanism. A new 10 blade was used to make a standard medial parapatellar arthrotomy. The patella was subluxed laterally. Electrocautery was used to dissect soft tissue off the superomedial tibia to the midsagittal plane. The knee was flexed up. The anterior horn of the lateral meniscus and the ACL were sharply incised. A drill was used to enter the distal femur. The intramedullary distal femoral cutting guide was pinned on the distal femur. The oscillating saw was used to make the distal femoral cut. The external rotation guide was pinned on the distal femur and the distal femur was sized to a size 5. The size 5 multi-cutting jig was pinned on the distal femur. The oscillating saw was used to make the appropriate 4 chamfer cuts. Next the PCL was completely released. The extramedullary tibial cutting guide was pinned on the proximal tibia and the oscillating saw was used to make the proximal tibial cut perpendicular to the mechanical axis of the tibia. The bone was carefully removed. The knee was brought out into full extension. The spacer block was placed and had excellent fit with the knee in full extension. The medial and lateral ligaments were well balanced. The flexion and extension gaps were well balanced. The knee was flexed up. Lamina digital campaign specialist was placed both medially and laterally. Any remaining meniscus was removed with electrocautery. Curved osteotome was used to remove any posterior osteophytes. The tibial tray and drop xander were placed and confirmed a satisfactory tibial cut. The size 5 right femoral trial was impacted onto the distal femur. This trial had excellent fit and stability. The box for the posterior stabilized implant was prepared using a box cut osteotome and a reamer. Next a tibial tray trial and 9 mm insert trial was placed. The knee was taken through a range of motion and had full extension to 130 degrees of flexion. Patellofemoral tracking was satisfactory. The patella was inverted and sized to a size 32. Three peg holes were drilled through the size 32 drill guide. The trial patella was placed and the knee was taken through a range of motion. There was satisfactory patellofemoral tracking. All trials were removed. The tibia was subluxed anteriorly and sized to a size 4. The proximal tibial was prepared with a size 4 keel punch. All bony cut surfaces were irrigated with sterile saline and dried. Final implants were cemented into place starting with the tibia, followed by the femur, and last the patella. A 9 mm insert trial was placed and the knee was brought into full extension. Tourniquet was turned down and the knee was copiously irrigated with sterile saline. Electrocautery was used to obtain meticulous hemostasis. Once the cement had fully cured, the insert trial was removed. Any excess cement was removed from around the hardware and capsule. Final insert chosen was a 9 mm posterior stabilized Milan II articular insert size 3-4. Stability of the insert was checked and noted to be stable. The extensor mechanism was closed using number 1 vicryls. The rest of the incision was closed in a layered fashion using 0 and 2-0 vicryls. The skin was closed using 3-0 nylon suture. Sterile xeroform, 4x4s and webril were used to cover the incision. Mahamed wrap and cold pack were used to cover the dressings. The patients anesthesia was reversed without difficulty. He was taken to the PACU in stable condition. Intended weight-bearing will be as tolerated.
--- NOTE | 2019-03-14 18:02 | CONS ---
CONSULTATION REPORT: DATE OF CONSULT: 03/14/19 CONSULTING PROVIDER: Dr. Roxana Go. MY ATTENDING WHILE IN THE HOSPITAL: Dr. Rojelio Fernando. REASON FOR CONSULT: Co-management of comorbid medical conditions. HISTORY OF PRESENT ILLNESS: Mr. Bhatia is a 68-year-old male with past medical history significant for prostate cancer, high cholesterol and hypertension, who is status post right total knee arthroplasty with Dr. Roxana Go for end- stage osteoarthritis. The patient postoperatively is feeling well. The patient has no pain due to his anesthesia not wearing off yet, but he is beginning to move his feet. The patient denies chest pain, shortness of breath , fevers, chills, abdominal pain, diarrhea, dizziness, or changes in vision. The patient also denies fevers or chills. The patient has not had any recent sick contacts. The patient has had no dyspnea on exertion, difficulty lying flat, or swelling in his lower legs before surgery. The patient has no sick contacts. The patient on the morning of his surgery took one-half a pill of one of his blood pressure medications, he does not know which one. The patient does not generally feel dizzy with standing up. Of note, the patient's history was obtained via a commercial property manager lul. PAST MEDICAL HISTORY: Prostate cancer, high cholesterol, hypertension, anemia. PAST SURGICAL HISTORY: Cataract surgery. CURRENT MEDICATIONS: 1. Losartan potassium 100 mg p.o. daily. 2. Fish oil 1000 mg p.o. daily. 3. Pravastatin 40 mg p.o. daily. 4. Citracal/vitamin D 1 tab p.o. daily. 5. Alfuzosin 10 mg p.o. daily. 6. Amlodipine 5 mg p.o. daily. 7. Erythromycin ointment 5 mg/g 1 drop to both eyes twice daily. 8. Osteo Bi-Flex. ALLERGIES: No known drug allergies. FAMILY HISTORY: The patient's mother of unknown cancer in her 90s. The patient's father in his 60s of an CT. Both of the patient's brothers had open heart surgery around his age. SOCIAL HISTORY: The patient used to work in construction, now owns a restaurant. The patient lives with his . The patient has never smoked. Drinks 1 glass of red wine a day and does not use illicit drugs. REVIEW OF SYSTEMS: A 14-point review of systems was reviewed and it is negative except as above in the HPI. PHYSICAL EXAM: General: The patient is a 68-year-old male who appears stated age and sitting comfortably in bed, in no acute distress. Vital Signs: At the time of evaluation, temperature 96.8, pulse rate 73, respiratory rate 18, oxygen saturation 98% on 2 L, blood pressure 121/77. HEENT: Head normocephalic , atraumatic. Sclerae anicteric. No conjunctival injection. Nasal mucosa moist. Oral mucosa moist. No oropharyngeal erythema, discharge, or exudate. Neck: Supple, nontender. No lymphadenopathy. No carotid bruits auscultated. No JVD. Cardiac: Regular rate and rhythm. No clicks, murmurs, gallops, or rubs. Pulses are 2+ in the bilateral dorsalis pedis, posterior tibialis, and radial areas. Respiratory: Clear to auscultation bilaterally. No wheezes, rales, or rhonchi. Good air exchange bilaterally. Abdomen: Soft, nontender, nondistended. Bowel sounds present and normoactive in all 4 quadrants. No hepatosplenomegaly. No abdominal bruits auscultated. No hepatojugular reflux. Genitourinary: No suprapubic or CVA tenderness. Cedeño in place draining clear yellow urine. Neuro: Cranial nerves II through XII intact. The patient is able to plantar and dorsiflex both his feet, though this is significantly diminished. The patient has diminished sensation to light touch in the bilateral lower extremities. Skin: Clean, dry, intact. No rash. Right-sided incision covered in bulky dressing, not visualized. Psychiatric: Pleasant and cooperative. LABORATORY DATA: Preoperative laboratory data: White blood cell count 4.3, hemoglobin 13.5, platelet count 275,000. INR 1.01, aPTT 32.0. Sodium 137, potassium 4.0, chloride 106, carbon dioxide 24, anion gap 7, BUN 12, creatinine 0.64, glucose 94, uric acid 7.3, calcium 9.8. Bilirubin 0.4, AST 22, ALT 29, alkaline phosphatase 35. Protein 7.8, albumin 4.5, globulin 3.3. ASSESSMENT AND PLAN: Impression: Mr. Bhatia is a 68-year-old male with past medical history significant for prostate cancer, hypertension and hyperlipidemia , who is status post right total knee arthroplasty and is doing well. 1. Postoperative state. Management per Orthopedics. The patient is doing well postoperatively. The patient will have H and H monitored, particularly with his anemia. The patient has no obvious cause for his anemia, though it may be related to B12 deficiency or low testosterone. This should be followed up outpatient, but in the hospital, he will be particularly acceptable to postoperative anemia. The patient should have his Cedeño catheter removed as soon as possible. The patient should be monitored for urinary retention and his alfuzosin will be continued due to history of prostate cancer. The patient should have bowel regimen and pain control per Orthopedics and should have fluids until he is able to tolerate intake by mouth. 2. Hypertension. The patient took his antihypertensives this morning and last night. The patient will have his antihypertensives held and monitored closely for postoperative hypotension given spinal anesthesia. These should be resumed as indicated. The patient is currently normotensive. 3. High cholesterol. Continue the patient's pravastatin. 4. Anemia. Monitor H and H closely as above. 5. DVT prophylaxis with apixaban per Orthopedics. 6. FEN: The patient will have a regular unrestricted diet and fluids as above. TIME SPENT: Approximately 60 minutes were spent on this consultation, 30 of which was spent [id number] with the patient obtaining history and physical and discussing the treatment plan. This plan was discussed with my attending, Dr. Rojelio Fernando, and he is in agreement. GILDARDO ZEPEDA [id number]/[facility] #: [id number] KEN
[2019-03-14] MEDS: ceFAZolin 1 GM ADVAN(*) 1 GM in NS 0.9% 50 ML* 50 ML IVPB SCH (21:18)
[2019-03-14] MEDS: Magnesium Hydroxide LIQ* 30 ML UDC PO SCH (22:55)
[2019-03-14] MEDS: Docusate CAP* 100 MG PO SCH (22:55)
[2019-03-14] MEDS: oxyCODONE/Acetamin 5/325 MG* TAB PO PRN (22:55)
[2019-03-14] MEDS: Erythromycin OPTH OINT* APPLIC OINT BOTH EYES SCH (23:00)
[2019-03-14] MEDS: Acetaminophen TAB* 325 MG PO SCH (23:03)
[2019-03-15] MEDS: oxyCODONE/Acetamin 5/325 MG* TAB PO PRN ×2 (04:47→11:51)
[2019-03-15] MEDS: ceFAZolin 1 GM ADVAN(*) 1 GM in NS 0.9% 50 ML* 50 ML IVPB SCH ×2 (04:48→11:53)
[2019-03-15] MEDS: Acetaminophen TAB* 325 MG PO SCH ×3 (05:20→21:57)
[2019-03-15 05:47] LABS: Hematocrit 33 % (42-52); Hemoglobin 11.2 g/dL (14.0-18.0); Mean Platelet Volume 8.4 fL (7.4-10.4); Platelet Count 221 10^3/uL (150-450)
[2019-03-15 06:11] LABS: BUN/Creatinine Ratio 19.5 (8-20); Calcium 9.1 mg/dL (8.6-10.3); EGFR African American 121.2 (>60); EGFR Non-African American 100.2 (>60); Potassium 3.9 mmol/L (3.5-5.0)
[2019-03-15] MEDS: oxyCODONE TAB* 5 MG TAB PO PRN ×2 (06:44→15:50)
[2019-03-15] MEDS: Docusate CAP* 100 MG PO SCH ×2 (08:51→21:57)
[2019-03-15] MEDS: ALFUZOSIN 10 MG PO SCH (08:51)
[2019-03-15] MEDS: Atorvastatin* 10 MG TAB PO SCH (08:51)
[2019-03-15] MEDS: Magnesium Hydroxide LIQ* 30 ML UDC PO SCH ×2 (08:51→22:09)
[2019-03-15] MEDS: Apixaban* 2.5 MG TAB PO SCH ×2 (08:51→21:57)
[2019-03-15] MEDS: Erythromycin OPTH OINT* APPLIC OINT BOTH EYES SCH ×2 (08:52→22:08)
--- NOTE | 2019-03-15 11:17 | PN ---
Progress Note - Progress Note Date of Service: 03/15/19 SOAP: Subjective: []Pt seen and examined at bedside. He feels well without CP, SOB, dizziness, nausea. Knee pain is well controlled. Nurse Leon helps with translation, though the patient is also able to communicate to ask and answer questions in sami. Objective: []General: Appears well, NAD RLE: Right knee dressing CDI, thigh soft, DP2+, DF/PF intact, sensation intact to light touch distally Calves supple and nontender without erythema, edema or palpable cords Assessment: []POD 1 sp Right total knee replacement Plan: []WBAT PT/OT eliquis 2.5 mg po BID Encouraged IS Vital Signs Temp 97.6 F 03/15/19 11:30 Pulse 70 03/15/19 11:30 Resp 20 03/15/19 11:51 BP 129/65 03/15/19 11:30 Pulse Ox 91 03/15/19 11:30 Intake & Output 03/14/19 03/15/19 03/15/19 18:59 06:59 18:59 Intake Total 2150 1790 210 Output Total 900 850 Balance 1250 940 210 Weight 154 lb Intake: IV Fluids 2150 1000 ABX - CEFAZOLIN 55 LR 2100 945 NS 50ML, Cefazolin 2G 50 Oral 790 210 Output: Cedeño 700 850 Estimated Blood Loss 200 Other: # Bowel Movements 0 Laboratory Last Values Hgb 11.2 g/dL (14.0-18.0) L 03/15/19 05:24 Hct 33 % (42-52) L 03/15/19 05:24 Plt Count 221 10^3/uL (150-450) 03/15/19 05:24 MPV 8.4 fL (7.4-10.4) 03/15/19 05:24 Sodium 137 mmol/L (135-145) 03/15/19 05:24 Potassium 3.9 mmol/L (3.5-5.0) 03/15/19 05:24 Chloride 104 mmol/L (101-111) 03/15/19 05:24 Carbon Dioxide 27 mmol/L (22-32) 03/15/19 05:24 Anion Gap 6 mmol/L (2-11) 03/15/19 05:24 BUN 15 mg/dL (6-24) 03/15/19 05:24 Creatinine 0.77 mg/dL (0.67-1.17) 03/15/19 05:24 Est GFR ( Amer) 121.2 (>60) 03/15/19 05:24 Est GFR (Non-Af Amer) 100.2 (>60) 03/15/19 05:24 BUN/Creatinine Ratio 19.5 (8-20) 03/15/19 05:24 Glucose 141 mg/dL (70-100) H 03/15/19 05:24 Calcium 9.1 mg/dL (8.6-10.3) 03/15/19 05:24
[2019-03-16 05:09] LABS: Hematocrit 31 % (42-52); Hemoglobin 10.3 g/dL (14.0-18.0); Mean Platelet Volume 8.3 fL (7.4-10.4); Platelet Count 190 10^3/uL (150-450)
[2019-03-16] MEDS: Acetaminophen TAB* 325 MG PO SCH (05:50)
[2019-03-16 07:29] VITALS: BP 142/76
[2019-03-16] MEDS: Magnesium Hydroxide LIQ* 30 ML UDC PO SCH (08:26)
[2019-03-16] MEDS: ALFUZOSIN 10 MG PO SCH (08:33)
[2019-03-16] MEDS: Apixaban* 2.5 MG TAB PO SCH (08:33)
[2019-03-16] MEDS: Docusate CAP* 100 MG PO SCH (08:33)
[2019-03-16] MEDS: oxyCODONE/Acetamin 5/325 MG* TAB PO PRN (08:33)
[2019-03-16] MEDS: Atorvastatin* 10 MG TAB PO SCH (08:33)
[2019-03-16] MEDS: Erythromycin OPTH OINT* APPLIC OINT BOTH EYES SCH (08:34)
--- NOTE | 2019-03-16 09:42 | DS ---
Orthopedic Discharge Summary - Discharge Summary Date of Admission:03/14/19 Date of Discharge: 03/16/19 Date of Surgery: 03/14/19 Attending Orthopedic Provider: Dr Go Pre-operative Diagnosis: Right knee osteoarthritis Operative Procedure: right total knee replacement Disposition of Patient: home Condition of Patient: stable History: JANET CHRISTINE is a 68 year old M with years of increasingly severe right knee pain. Patient has failed conservative management and has elected to undergo a right total knee replacement Hospital Course: JANET was admitted to [facility] on 03/14/19. Patient underwent a right total knee replacement without complication followed by a brief recovery in PACU and transfer to the Short Stay Surgical Unit in stable condition. Our hospitalist service, physical therapy and occupational therapy also participated in this patients care. Post-op day 1: patient was alert and in no acute distress. Dressing was clean, dry and intact. Operative extremity dorsiflexion and plantarflexion intact, sensation intact to light touch distally, DP2+. Post-op day two: dressing was changed by Dr Go, incision was clean, dry and intact. Patient was deemed to be medically and orthopedically stable for discharge. Physical therapy goals were met. Home Medications Medication Instructions Recorded Confirmed Type amLODIPine TAB* [Norvasc 5 mg TAB*] 5 mg PO DAILY 04/09/14 03/14/19 History Alfuzosin ER (NF) [Uroxatral (NF)] 10 mg PO DAILY 12/12/18 03/14/19 History Erythromycin OPTH OINT* 1 applic BOTH EYES BID 12/12/18 03/14/19 History [Erythromycin 0.5% OPTH OINT*] Losartan Potassium 100 mg PO DAILY 12/12/18 03/14/19 History Pravastatin Sodium 40 mg PO DAILY 12/12/18 03/14/19 History Sildenafil Citrate [Viagra] 50 mg PO DAILY 03/02/19 03/14/19 History traZODone TAB* [Desyrel TAB*] 50 mg PO BEDTIME 03/02/19 03/14/19 History Acetaminophen TAB* [Tylenol TAB*] 975 mg PO Q8H tab 03/16/19 Rx Apixaban* [Eliquis*] 2.5 mg PO BID #60 tab 03/16/19 Rx Docusate CAP* [Colace Cap*] 100 mg PO BID PRN #90 cap 03/16/19 Rx oxyCODONE/Acetamin 5/325 MG* 1 tab PO Q4H PRN #70 tab MDD 10 03/16/19 Rx [Percocet 5/325 TAB*] oxyCODONE/Acetamin 5/325 MG* 2 tab PO Q4H PRN tab MDD 10 03/16/19 Rx [Percocet 5/325 TAB*] Discharge Instructions following Orthopedic Surgery: Activity: * Weight Bearing as tolerated * Continue physical therapy and occupational therapy exercises as shown * home physical therapy Wound care: * OK to shower on post-op day 3, no bathing, swimming, or submerging wound. * Use gentle soap, pat dry. Cover with gauze, RITIKA wrap or tape. * Visiting home nurse to do wound checks. Call Orthopedic office for: * Increased drainage * Redness * Increased pain * Fever Go to ER with shortness of breath or chest pain. Diet: * Regular diet * Increase fluids and fiber to prevent constipation. * Continue to use stool softeners, call office if no bowel motion within 48 hours. Medications See Home Medication List in your packet for medications that you should take after discharge. DVT Prophylaxis: Eliquis Dosin.5 mg, 1 tab every 12 hours x 30 days. this medication increases bleeding tendency Pain Control: Percocet Dosin/325 mg 1-2 tabs by mouth every 4-6 hours as needed for pain. Maximum of 10 tabs per day. Hold for sedation Please note that Percocet contains Tylenol (acetaminophen). Maximum daily dose of Tylenol is 4000 mg from all sources. Antibiotics are required prior to any dental work. FOLLOW UP: Follow up with [[facility]] Within 10-14 days, call for appointment Please call our office with any questions or concerns ([phone])
--- NOTE | 2019-03-16 09:44 | PN ---
Progress Note - Progress Note Date of Service: 03/16/19 SOAP: Subjective: []Pt seen at bedside with nurse Leon, he is feeling well, pain is well controlled. Denies nausea, vomiting, dizziness, chest pain or shortness of breath. He desires DC home and all questions were answered. Objective: [] General: Appears well, NAD RLE: Right knee dressing CDI, dressing changed by Dr Go this morning. thigh soft, DP2+, DF/PF intact, sensation intact to light touch distally Calves supple and nontender without erythema, edema or palpable cords Assessment: []POD 2 sp Right total knee replacement Plan: []WBAT PT/OT eliquis 2.5 mg po BID Encouraged continued use of IS DC home Vital Signs Temp 98.3 F 03/16/19 07:28 Pulse 75 03/16/19 07:28 Resp 18 03/16/19 08:33 BP 142/76 03/16/19 07:28 Pulse Ox 94 03/16/19 07:28 Intake & Output 03/15/19 03/16/19 03/16/19 18:59 06:59 18:59 Intake Total 1986 730 320 Output Total 475 1125 200 Balance 1511 -395 120 Intake: IV Fluids 976 ABX - CEFAZOLIN 110 LR 866 Oral 1010 730 320 Output: Urine 475 1125 200 Other: Estimated Void Medium Medium # Bowel Movements 1 0 1 Estimated Stool Amount Large Medium Small # Voids 1 1 Laboratory Last Values Hgb 10.3 g/dL (14.0-18.0) L 03/16/19 04:39 Hct 31 % (42-52) L 03/16/19 04:39 Plt Count 190 10^3/uL (150-450) 03/16/19 04:39 MPV 8.3 fL (7.4-10.4) 03/16/19 04:39 Sodium 137 mmol/L (135-145) 03/15/19 05:24 Potassium 3.9 mmol/L (3.5-5.0) 03/15/19 05:24 Chloride 104 mmol/L (101-111) 03/15/19 05:24 Carbon Dioxide 27 mmol/L (22-32) 03/15/19 05:24 Anion Gap 6 mmol/L (2-11) 03/15/19 05:24 BUN 15 mg/dL (6-24) 03/15/19 05:24 Creatinine 0.77 mg/dL (0.67-1.17) 03/15/19 05:24 Est GFR ( Amer) 121.2 (>60) 03/15/19 05:24 Est GFR (Non-Af Amer) 100.2 (>60) 03/15/19 05:24 BUN/Creatinine Ratio 19.5 (8-20) 03/15/19 05:24 Glucose 141 mg/dL (70-100) H 03/15/19 05:24 Calcium 9.1 mg/dL (8.6-10.3) 03/15/19 05:24
[~2019-03-16 11:30] MED LIST: Bisacodyl SUPP* 10 MG SUPP PR PRN; Buffered Lidocaine 1% SYRIN* 1 ML/SYRINGE INTRADERM ONE; Bupivacaine 0.25% SDV* 30 ML ONE; Cyclobenzaprine TAB* 10 MG PO PRN; Dexamethasone IV* 4 MG/ML 1 ML (4 MG) ONE; DiMENhydriNATE IV* 50 MG/ML VIAL IV PUSH PRN; HYDROmorphone INJ1* 1 MG/ML SYRINGE IV PRN; Ketorolac INJ* 30 MG/ML 1 ML VIAL ONE; Lactated Ringers 1000 ML Bag* 1,000 ML IV SCH; Magnesium Hydroxide LIQ* 30 ML UDC PO PRN; Midazolam* 1 MG/ML 5 ML VIAL (5 MG) ONE; Morphine INJ* 2 MG/ML 1 ML SYRINGE (TWO MG - NEW SYRINGE VERSION) IV PRN; NON FORMULARY MED* (Losartan Potassium [Losartan Potassium] 100 MG) PO SCH; Nalbuphine* 10 MG/ML 1 ML VIAL IV PRN; Naloxone* 0.4 MG/ML 1 ML VIAL IV PRN; Ondansetron INJ* 2 MG/ML VIAL IV PRN; Ondansetron INJ* 2 MG/ML VIAL ONE; Ondansetron TAB* 4 MG PO PRN; Polyethylene Glycol 3350* 17 GM PACKET PO PRN; ROPIVACAINE 5 MG/ML 30 ML BTL (0.5%) ONE; Tranexamic Acid 1,000 MG in NS 0.9% 50 ML* (outpatient use) IV SCH; amLODIPine TAB* 5 MG PO SCH; ceFAZolin 2 GM PREMIX in ORs 2 GM/50 ML BAG ONE; diPHENhydraMINE IV* 50 MG/ML 1 ml VIAL (BENADRYL) IV PRN; fentaNYL* 50 MCG/ML 2 ML VIAL (100 MCG VIAL) IV PRN; fentaNYL* 50 MCG/ML 2 ML VIAL (100 MCG VIAL) ONE; oxyCODONE/Acetamin 5/325 MG* TAB PO PRN; traMADol TAB* 50 MG PO PRN
== END | disposition home health service (06) | DRG 470 ==
LOC: AA 03-14 09:47 → SSU 03-14 17:27
PROVIDERS: ADMIT Orthopaedic Surgery Adult Reconstructive Orthopaedic Surgery; ATTEND Orthopaedic Surgery Adult Reconstructive Orthopaedic Surgery
PROC: 0SRC0J9 Replacement of Right Knee Joint with Synthetic Substitute, Cemented, Open Approach (ICD-10-PCS; principal; 2019-03-14 12:30)
DX: M17.11 Unilateral primary osteoarthritis, right knee (principal); E78.00 Pure hypercholesterolemia, unspecified; I10 Essential (primary) hypertension; I25.10 Atherosclerotic heart disease of native coronary artery without angina pectoris; M21.161 Varus deformity, not elsewhere classified, right knee; M25.761 Osteophyte, right knee; M25.461 Effusion, right knee; E78.5 Hyperlipidemia, unspecified; N40.0 Benign prostatic hyperplasia without lower urinary tract symptoms; K44.9 Diaphragmatic hernia without obstruction or gangrene; M10.9 Gout, unspecified; D64.9 Anemia, unspecified; Z98.49 Cataract extraction status, unspecified eye; Z85.46 Personal history of malignant neoplasm of prostate; Z86.010 Personal history of colon polyps; Z82.49 Family history of ischemic heart disease and other diseases of the circulatory system; Z72.89 Other problems related to lifestyle
CPT/HCPCS: 36415; 80048; 85014; 85018; 85049; A9270-GY; G8978-GP-CJ; G8979-GP-CI; J0690; J1100; J1885; J2250; J2405; J2795; J3010; J3490